=== PATIENT | male | born 1940 | race Caucasian/White ===

== ENCOUNTER → 2018-09-29 08:28 | Outpatient (CLI) | payer MEDICARE, SELFPAY ==
[2018-09-29 09:21] LABS: Add Manual Diff / Slide Review NO; Basophils Absolute Auto 100 /uL (0-100); Basophils Percent Auto 0.8 % (0-2); Eosinophils Absolute Auto 400 /uL (0-450); Hematocrit 40.8 % (41-53); Hemoglobin 14.4 g/dL (13.5-17.5); Lymphocytes Absolute Auto 1600 /uL (1100-4500); Lymphocytes Percent Auto 22.6 % (25-40); Mean Corpuscular HGB Conc 35.3 % (30-36); Mean Corpuscular Hemoglobin 32.8 PG (26-34); Monocytes Absolute Auto 600 /uL (0-900); Monocytes Percent Auto 8.9 % (3-14); Neutrophils Absolute Auto 4400 /uL (1500-7000); Neutrophils Percent Auto 62.7 % (50-75); Platelet Count 183 X10^3/uL (150-400); Red Blood Cell Count 4.39 X10^6/uL (4.5-5.9); Red Cell Distribution Width 13.6 % (11.6-14.8)
[2018-09-29 09:57] LABS: Alanine Aminotransferase 46 IU/L (21-72); Albumin 4.2 g/dL (3.5-5.0); Albumin Globulin Ratio 1.2 (1.0-2.8); Alkaline Phosphatase 58 U/L (38-126); Aspartate Aminotransferase 38 IU/L (17-59); Bilirubin Total 0.4 mg/dL (0.2-1.3); Blood Urea Nitrogen 17 mg/dL (9-20); Calcium 9.6 mg/dL (8.4-10.2); Carbon Dioxide 24 mmol/L (22-32); Chloride 106 mmol/L (98-107); Cholesterol 170 mg/dL (140-199); Estimated Glomerular Filt Rate > 60.0 mL/min (>60); Globulin 3.5 g/dL (1.7-4.1); Glucose 110 mg/dL (80-110); HDL Cholesterol 46 mg/dL (40-60); HEMOLYSIS < 15 (0-50); LDL Cholesterol Calculated 85 mg/dL (<100); Potassium 4.5 mmol/L (3.4-5.1); Sodium 138 mmol/L (137-145); Total Protein 7.7 g/dL (6.3-8.2); Triglycerides 195 mg/dL (35-150)
== END ==
PROVIDERS: PCP Physician Assistant; Visit Provider Physician Assistant
DX: E78.00 Pure hypercholesterolemia, unspecified (principal)
CPT/HCPCS: 36415; 80053; 80061; 85025

== ENCOUNTER → 2019-04-17 09:50 | Outpatient (CLI) | payer MEDICARE, SELFPAY ==
--- NOTE | 2019-04-17 | DI.RAD.S_ITS ---
PROCEDURE: XR HIP W PEL IF DONE RT 2V INDICATIONS: RIGHT HIP PAIN TECHNIQUE: AP pelvis with lateral view(s) of the right hip(s). COMPARISON: None. FINDINGS: Bones: No fractures or dislocations. Pelvic ring appears intact. No suspicious bony lesions. Lower lumbar spondylosis. Mild bilateral hip joint degeneration. Soft tissues: The visualized bowel gas pattern is normal. No suspicious soft tissue calcifications. IMPRESSION: Mild bilateral hip degeneration. Lower lumbar spondylosis. Dictated by: Emmanuel Orozco M.D. on 04/17/2019 at 12:55 Approved by: Emmanuel Orozco M.D. on 04/17/2019 at 12:57
== END ==
PROVIDERS: PCP Physician Assistant; Visit Provider Physician Assistant
DX: M25.551 Pain in right hip (principal); M16.0 Bilateral primary osteoarthritis of hip; M47.816 Spondylosis without myelopathy or radiculopathy, lumbar region
CPT/HCPCS: 73502

== ENCOUNTER → 2019-09-18 08:38 | Outpatient (CLI) | payer MEDICARE, SELFPAY ==
[2019-09-18 09:14] LABS: Add Manual Diff / Slide Review NO; Basophils Absolute Auto 100 /uL (0-100); Basophils Percent Auto 0.8 % (0-2); Eosinophils Absolute Auto 300 /uL (0-450); Hematocrit 42.4 % (41-53); Hemoglobin 14.6 g/dL (13.5-17.5); Lymphocytes Absolute Auto 1800 /uL (1100-4500); Lymphocytes Percent Auto 25.9 % (25-40); Mean Corpuscular HGB Conc 34.6 % (30-36); Mean Corpuscular Hemoglobin 32.5 PG (26-34); Mean Corpuscular Volume 94.2 fL (80-100); Monocytes Absolute Auto 700 /uL (0-900); Monocytes Percent Auto 9.4 % (3-14); Neutrophils Absolute Auto 4200 /uL (1500-7000); Neutrophils Percent Auto 59.9 % (50-75); Platelet Count 187 X10^3/uL (150-400); Red Cell Distribution Width 13.6 % (11.6-14.8)
[2019-09-18 09:24] LABS: Alanine Aminotransferase 35 IU/L (<50); Albumin 4.2 g/dL (3.5-5.0); Albumin Globulin Ratio 1.3 (1.0-2.8); Alkaline Phosphatase 61 U/L (38-126); Aspartate Aminotransferase 33 IU/L (17-59); BUN Creatinine Ratio 18.2 (6-22); Bilirubin Total 0.6 mg/dL (0.2-1.3); Blood Urea Nitrogen 20 mg/dL (9-20); Calcium 9.8 mg/dL (8.4-10.2); Carbon Dioxide 29 mmol/L (22-32); Chloride 102 mmol/L (98-107); Estimated Glomerular Filt Rate > 60.0 mL/min (>60); Globulin 3.2 g/dL (1.7-4.1); Glucose 116 mg/dL (80-110); HEMOLYSIS < 15 (0-50); Potassium 4.9 mmol/L (3.4-5.1); Sodium 139 mmol/L (137-145); Total Protein 7.4 g/dL (6.3-8.2)
== END ==
PROVIDERS: PCP Physician Assistant; Visit Provider Physician Assistant
DX: I10 Essential (primary) hypertension (principal); E78.00 Pure hypercholesterolemia, unspecified
CPT/HCPCS: 36415; 80053; 85025

== ENCOUNTER → 2019-11-09 13:56 | Outpatient (CLI) | payer MEDICARE, SELFPAY ==
--- NOTE | 2019-11-09 | DI.RAD.S_ITS ---
PROCEDURE: XR LUMBAR SPINE 2-3V INDICATIONS: Low back pain TECHNIQUE: 3 views of the lumbar spine were acquired. COMPARISON: None. FINDINGS: Bones: No fracture or focal osseous destruction. Multilevel degenerative endplate sclerosis and spurring. Diffuse facet arthropathy. Grade 1 anterolisthesis of L4 and L5 and grade 1 retrolisthesis of L2 on L3. Severe height loss of the L2-L3 and L5-S1 disc spaces. There is also severe L4-L5 disc height loss. Moderate L3-L4 disc height loss. Soft tissues: Scattered vascular calcifications seen in the aorta. Right upper quadrant cholelithiasis. IMPRESSION: Severe lumbar spondylosis and facet arthropathy. Multilevel spondylolisthesis as above. Dictated by: Emmanuel Orozco M.D. on 11/09/2019 at 16:40 Approved by: Emmanuel Orozco M.D. on 11/09/2019 at 16:42
== END ==
PROVIDERS: PCP Physician Assistant; Referring Provider Physician Assistant; Visit Provider Physician Assistant
DX: M54.5 Low back pain (principal); M47.816 Spondylosis without myelopathy or radiculopathy, lumbar region; M43.16 Spondylolisthesis, lumbar region; K80.20 Calculus of gallbladder without cholecystitis without obstruction
CPT/HCPCS: 72100

== ENCOUNTER → 2019-11-14 09:02 | Outpatient (CLI) | payer MEDICARE, SELFPAY ==
--- NOTE | 2019-11-14 | DI.MRI.S_ITS ---
PROCEDURE: MR LUMBAR SPINE WO CON INDICATIONS: Spondylolisthesis, lumbar region TECHNIQUE: Noncontrast sagittal T1 spin echo and T2 fast echo, sagittal STIR, axial T1 and T2 fast spin echo through the lumbar spine. In cases with scoliosis, additional coronal T2 fast spin echo may be performed. COMPARISON: [facility], CR, XR LUMBAR SPINE 2-3V, 11/09/2019, 14:14. FINDINGS: Image quality: Excellent. Alignment and Curvature: There is grade 1 retrolisthesis of L2 on L3, trace retrolisthesis of L5 on S1 and grade 1 anterolisthesis of L4 on L5. Bone Marrow: Marrow is of normal overall signal. Mild to moderate reactive endplate changes are present L2-3 and to a lesser extent L3-4, L4-5 and L5-S1. No acute vertebral body compression fractures. Spinal Cord: Conus medullaris terminates at the L2 level. Visualized cord demonstrates normal signal and size. Paraspinous Soft Tissues: No paravertebral masses. Discs: Severe desiccation is present at L2-3, L4-5, mild to moderate throughout the remainder of the lumbar spine. L1-L2: Mild disc bulge with minimal canal narrowing. Mild bilateral foraminal narrowing with facet and ligamentum flavum hypertrophy. L2-L3: Mild disc bulge with severe spinal stenosis. Moderate to severe left and moderate to severe narrowing within the subarticular recess on the right. Prominent facet and ligamentum flavum hypertrophy is present. L3-L4: Mild disc bulge with severe spinal stenosis. Mild left and moderate to severe right foraminal narrowing with facet and ligamentum flavum hypertrophy. L4-L5: Mild disc bulge with severe spinal stenosis. Severe bilateral foraminal narrowing with nerve root flattening on the right. Significant facet and ligamentum flavum hypertrophy are present. L5-S1: Mild disc bulge without spinal stenosis. Moderate left and severe right foraminal narrowing with prominent facet hypertrophy. IMPRESSION: 1. Multilevel degenerative changes. 2. Multilevel spinal stenosis severe from L2-3 through L4-5 secondary to disc bulge with contributing effect of facet/ligament arthropathy. 3. Multilevel foraminal narrowing severe at L4-5 and L5-S1 secondary to facet arthropathy. Dictated by: Karla Arellano M.D. on 11/14/2019 at 13:41 Approved by: Karla Arellano M.D. on 11/14/2019 at 15:07
== END ==
PROVIDERS: PCP Physician Assistant; Referring Provider Physician Assistant; Visit Provider Physician Assistant
DX: M43.16 Spondylolisthesis, lumbar region (principal); M47.816 Spondylosis without myelopathy or radiculopathy, lumbar region; M47.817 Spondylosis without myelopathy or radiculopathy, lumbosacral region; M48.061 Spinal stenosis, lumbar region without neurogenic claudication; M48.07 Spinal stenosis, lumbosacral region
CPT/HCPCS: 72148

== ENCOUNTER → 2020-05-06 14:43 | Outpatient (ROUT) | payer MEDICARE, SELFPAY ==
[2020-05-06 15:10] LABS: Add Manual Diff / Slide Review NO; Basophils Absolute Auto 100 /uL (0-100); Eosinophils Absolute Auto 200 /uL (0-450); Eosinophils Percent Auto 3.7 % (2-4); Hematocrit 41.5 % (41-53); Hemoglobin 14.1 g/dL (13.5-17.5); Lymphocytes Absolute Auto 1300 /uL (1100-4500); Lymphocytes Percent Auto 20.4 % (25-40); Mean Corpuscular HGB Conc 33.9 % (30-36); Mean Corpuscular Hemoglobin 32.3 PG (26-34); Mean Corpuscular Volume 95.1 fL (80-100); Monocytes Absolute Auto 600 /uL (0-900); Monocytes Percent Auto 9.9 % (3-14); Neutrophils Absolute Auto 4100 /uL (1500-7000); Platelet Count 180 X10^3/uL (150-400); Red Blood Cell Count 4.37 X10^6/uL (4.5-5.9); Red Cell Distribution Width 13.6 % (11.6-14.8); White Blood Cell Count 6.3 X10^3/uL (4.5-11.0)
[2020-05-06 15:22] LABS: Alanine Aminotransferase 35 IU/L (<50); Albumin 4.1 g/dL (3.5-5.0); Albumin Globulin Ratio 1.3 (1.0-2.8); Alkaline Phosphatase 64 U/L (38-126); Aspartate Aminotransferase 37 IU/L (17-59); BUN Creatinine Ratio 21.6 (6-22); Bilirubin Total 0.8 mg/dL (0.2-1.3); Blood Urea Nitrogen 22 mg/dL (9-20); Calcium 9.6 mg/dL (8.4-10.2); Carbon Dioxide 24 mmol/L (22-32); Chloride 105 mmol/L (98-107); Cholesterol 145 mg/dL (140-199); Estimated Glomerular Filt Rate > 60.0 mL/min (>60); Globulin 3.2 g/dL (1.7-4.1); Glucose 106 mg/dL (80-110); HDL Cholesterol 42 mg/dL (40-60); HEMOLYSIS 18 (0-50); LDL Cholesterol Calculated 55 mg/dL (<100); Potassium 4.8 mmol/L (3.4-5.1); Sodium 139 mmol/L (137-145); Total Protein 7.3 g/dL (6.3-8.2); Triglycerides 241 mg/dL (35-150)
[2020-05-06 15:29] LABS: Vitamin D 25 Hydroxy (D3) 33.3 ng/mL (30.0-100.0)
== END ==
PROVIDERS: PCP Physician Assistant; Visit Provider Physician Assistant
DX: I10 Essential (primary) hypertension (principal); E78.00 Pure hypercholesterolemia, unspecified; E55.9 Vitamin D deficiency, unspecified
CPT/HCPCS: 80053; 80061; 82306; 85025

== ENCOUNTER → 2024-10-01 16:46 | Outpatient (CLI) | payer OTHER, SELFPAY ==
--- NOTE | 2024-10-01 16:47 | DI.MRI.S_ITS ---
PROCEDURE: MR LUMBAR SPINE WO CON INDICATIONS: chronic pain, weakness lower extremities, lumbar stenosis TECHNIQUE: Noncontrast sagittal T1 spin echo and T2 fast echo, sagittal STIR, and T2 fast spin echo through the lumbar spine. In cases with scoliosis, additional coronal T2 fast spin echo may be performed. COMPARISON: [facility], MR, MR LUMBAR SPINE WO CON, 11/14/2019, 9:27. FINDINGS: Alignment and Curvature: Degenerative grade 1 listhesis L2-3 and L4-5 Bone Marrow: Edematous Modic type 1 degenerative endplate changes at L3-4 Spinal Cord: Conus medullaris terminates at the L1 level. Visualized cord demonstrates normal signal and size. Paraspinous Soft Tissues: No paravertebral masses. T12-L1: Normal appearance. L1-L2: Hypertrophic arthropathy. Mild central stenosis. No foraminal stenosis. L2-L3: Disc bulge and arthropathy. Severe central stenosis. Moderate bilateral foraminal stenosis L3-L4: Disc bulge, arthropathy and ligamentum flavum laxity. Severe central stenosis. Moderate bilateral foraminal stenosis. L4-L5: Disc bulge and hypertrophic arthropathy. Severe central stenosis. Severe bilateral foraminal stenosis. L5-S1: Disc bulge and arthropathy. Mild central and moderate bilateral foraminal stenosis. IMPRESSION: Multilevel degenerative disc disease and arthropathy results in varying degrees of central and foraminal stenosis including severe central stenosis L2-3, L3-4 and L4-5, slightly increased from the prior. Approved by: Jairo Wei M.D. on 10/02/2024 at 10:15
== END ==
PROVIDERS: PCP Family Medicine; Referring Provider Family Medicine; Visit Provider Family Medicine
DX: M48.061 Spinal stenosis, lumbar region without neurogenic claudication (principal); M47.816 Spondylosis without myelopathy or radiculopathy, lumbar region; M47.817 Spondylosis without myelopathy or radiculopathy, lumbosacral region; M48.07 Spinal stenosis, lumbosacral region; M51.379 Other intervertebral disc degeneration, lumbosacral region without mention of lumbar back pain or lower extremity pain; M51.369 Other intervertebral disc degeneration, lumbar region without mention of lumbar back pain or lower extremity pain; R29.898 Other symptoms and signs involving the musculoskeletal system; R26.2 Difficulty in walking, not elsewhere classified; G89.29 Other chronic pain
CPT/HCPCS: 72148

== ENCOUNTER 2024-10-03 13:45 | Outpatient (RCR) | payer MEDICARE, OTHER, SELFPAY ==
--- NOTE | 2024-06-13 12:15 | PT.OPPOC ---
Physical, Occupational & Speech Therapy At [facility] Current Diagnoses Pain in right hip (06/13/24) Spondylosis without myelopathy or radiculopathy, lumbar region (06/13/24) Spinal stenosis, lumbar region without neurogenic claudication (06/13/24) Visit Care Team Role Provider Type Referring Provider Specialty: Address: Phone: Fax: Email: Dayana Ramos PA-C Primary Care Provider Non-Staff Specialty: Medical Address: [address] [place] [address], [id number] Email: [email or web address] Mahnaz Silvestre MD Attending Provider Non-Staff Specialty: Physical Medicine and Rehab Address: [address] [place] [address], [id number] Email: Plan Of Care PT-OP-B Current Condition Start: 06/13/24 17:47 Freq: Status: Active Protocol: Document 06/13/24 11:35 DCW (Rec: 06/14/24 10:55 DCW [id number]) Current Condition History of Current Condition Onset Date Four year history Current Complaints Hip pain, sudden buckling of right leg, Stenosis History of Current Condition Pt is an 83 year old male presenting with a multi-year history of back and right hip pain. Pt notes he believes 2020 was the first time he went to see a doctor about it, reports it was recommended that he have a fusion at that time, but he didn't go through with it. In the mean time, his has been having an increase in right posterior hip pain. Was taking pain pills for a while, but stopped so he could get a better idea of what was flaring it up or calming it down. Increased pain when walking too much, rolling over, and when first getting up in the morning. Was recently seen by a new physician, pt reports that she actually listened to me, and I got actual information about everything! Was diagnosed with severe stenosis , facet arthropathy, and neuropathy. Pt notes he was recently working with a intelligence research specialist, they're trying to straighten my spine out, but I decided to stop with them until I did my PT, because if then straighten out my spine, great, I'll have a straight spine, but it won't help this hip pain. Currently uses a 4WW due to complaints of sudden, unexpected right leg buckling. Treatment Goals Patient/Caregiver Goals Pt's main goal is to decrease right posterior hip pain, and to eliminate occurrences of right leg buckling PT-OP-T Assessment and Plan Start: 06/13/24 17:47 Freq: Status: Active Protocol: Document 06/13/24 11:35 DCW (Rec: 06/14/24 10:55 DCW [id number]) Physical Therapy Assessment Evaluation Complexity Number of Personal Factors/Comorbidities 3 or More Number of Body Systems Impaired 4 or More Clinical Presentation at Evaluation Evolving Impairments Impairments Activity Tolerance,Functional Activities,Functional Mobility ,Pain,Soft Tissue Mobility, Strength,Tone Goals Three Impairment Pt displays general LE weakness and quickly fatigues with testing Skilled Nursing Goal (LTG) Pt to increase bilateral LE strength to 4/5 or better in all tested planes in order to improve stability during gait and decrease instances of right leg buckling LTG Duration 08/13/24 Two Impairment Pt experiences increased right hip pain walking longer than 10 minutes Territory Manager General Sales Goal (LTG) Pt to report ability to tolerate ambulating 20 minutes or longer with use of a 4WW without increased right hip pain LTG Duration 08/13/24 One Impairment Pt does not have an appropriate home exercise program Short Term Goal (STG) Pt to be independent and compliant with an appropriate HEP STG Duration 07/14/24 Assessment Summary Assessment Pt presents with signs and symptoms consistent with referring diagnosis of severe lumbar stenosis. Pt exhibits bilateral lower extremity weakness, sudden right leg buckling, right posterior hip pain, and fairly severe tone throughout lumbar and hip musculature. Pt should benefit from skilled therapeutic intervention focusing on hip and core strengthening, tone management with flexibility/ stretching in hamstrings, glutes, hip flexors, and piriformis, in addition to working on pelvic tilts and abdominal bracing for support. Physical Therapy Plan Frequency and Duration Frequency of Treatment 2x/Week Plan of Care Start Date 06/13/24 Plan of Care End Date 08/13/24 Therapeutic Interventions Therapeutic Interventions Balance Training,Gait Training ,Home Exercise Program,Joint Mobilizations,Manual Therapy, Neuromuscular Re-education, Patient/Caregiver Education, Self-Care/Home Management,Soft Tissue Mobilization,Taping, Therapeutic Activities, Therapeutic Exercises Modalities Cold Pack/Ice Massage,Electric Stimulation,Hot Packs Next Visit Focus/Plan Next Note Type Treatment Note Next Visit Plan bilateral hip flexibility, core strengthening, gait, functional mobility Plan of Care Dates Plan of Care Start Date 06/13/24 Plan of Care End Date 08/13/24 Electronically Signed by: Billy Selby, PT 06/14/24 2919 If you are in agreement with this Plan of Care, please return a signed and dated copy. I have reviewed this Plan of Care and certify that the skilled therapy services above are required to meet the patient?s needs. Physician Signature Date Printed Name and Credentials Clinical Instructor Signature Printed Name and Credentials
--- NOTE | 2024-06-13 12:15 | PT.OIE ---
Current Diagnoses Pain in right hip (06/13/24) Spondylosis without myelopathy or radiculopathy, lumbar region (06/13/24) Spinal stenosis, lumbar region without neurogenic claudication (06/13/24) Past Medical History (Last Updated 01/03/23 @ 13:23 by Yvrose Fernández MD) Depression Hypertension Obesity Past Surgical History (Last Updated 01/03/23 @ 13:24 by Yvrose Fernández MD) History of back surgery Visit Care Team Role Provider Type Referring Provider Specialty: Address: Phone: Fax: Email: Dayana Ramos PA-C Primary Care Provider Non-Staff Specialty: Medical Address: [address] [place] [address], [facility] Email: [email or web address] Silvestre MD Attending Provider Non-Staff Specialty: Physical Medicine and Rehab Address: [address] [place] [address], [facility] Email: Physical Therapy Initial Evaluation PT-OP-A Visit Information Start: 06/13/24 17:47 Freq: Status: Active Protocol: Document 06/13/24 11:35 DCW (Rec: 06/13/24 17:52 DCW [id number]) Out-Patient Physical Therapy Visit Information Visit Information Visit Type Initial Evaluation Visit Note Late arrival Visit Start Time 11:35 Visit Stop Time 12:15 Visit Number 1 Number of CHRISTIAN SCIENCE HEALER Visits 0 Evaluation Information Evaluation Date 06/13/24 PT-OP-B Current Condition Start: 06/13/24 17:47 Freq: Status: Active Protocol: Document 06/13/24 11:35 DCW (Rec: 06/14/24 10:55 DC [id number]) Current Condition History of Current Condition Onset Date Four year history Current Complaints Hip pain, sudden buckling of right leg, Stenosis History of Current Condition Pt is an 83 year old male presenting with a multi-year history of back and right hip pain. Pt notes he believes 2020 was the first time he went to see a doctor about it, reports it was recommended that he have a fusion at that time, but he didn't go through with it. In the mean time, his has been having an increase in right posterior hip pain. Was taking pain pills for a while, but stopped so he could get a better idea of what was flaring it up or calming it down. Increased pain when walking too much, rolling over, and when first getting up in the morning. Was recently seen by a new physician, pt reports that she actually listened to me, and I got actual information about everything! Was diagnosed with severe stenosis , facet arthropathy, and neuropathy. Pt notes he was recently working with a investor relations specialist, they're trying to straighten my spine out, but I decided to stop with them until I did my PT, because if then straighten out my spine, great, I'll have a straight spine, but it won't help this hip pain. Currently uses a 4WW due to complaints of sudden, unexpected right leg buckling. Treatment Goals Patient/Caregiver Goals Pt's main goal is to decrease right posterior hip pain, and to eliminate occurrences of right leg buckling PT-OP-C Subjective Start: 06/13/24 17:47 Freq: Status: Active Protocol: Document 06/13/24 11:35 DCW (Rec: 06/13/24 17:52 DCW [id number]) OP-PT Subjective Patient Comments Patient Comments I need to use this walker, because my right leg will just suddenly give out on me. I never know when it will happen . Patient Questionnaires Oswestry Low Back Index Oswestry Score 16/50 = 32% PT-OP-F Manual Assessment Start: 06/13/24 17:47 Freq: Status: Active Protocol: Document 06/13/24 11:35 DCW (Rec: 06/14/24 10:55 DCW [id number]) Manual Assessments Soft Tissue Assessment Soft Tissue Mobility Assessment Severe tone/hypomobility of bilateral hamstrings, hip flexors, ITB, piriformis, glutes Joint Mobility Assessment Joint Mobility Assessment Moderate-severe lumbar hypomobility PT-OP-L Special Tests Start: 06/13/24 17:47 Freq: Status: Active Protocol: Document 06/13/24 11:35 DCW (Rec: 06/14/24 10:55 DCW [id number]) Special Tests Lumbar Spine Special Tests Straight Leg Raise Test Results Hamstring tightness L 50?, R 40? Slump Test Results Hamstring tightness Compression Test Results Negative A-P Shearing Test Results Negative Hip Special Tests Souleymane Test Results Bilateral hip flexor stretch Piriformis Test Results Bilateral stiffness LEO Test Results Ipsilateral hip pain bilaterally PT-OP-M Strength Start: 06/13/24 17:47 Freq: Status: Active Protocol: Document 06/13/24 11:35 DCW (Rec: 06/14/24 10:55 DCW [id number]) Hip Strength Hip Manual Muscle Testing Right Flexion (L2) 4- Good- Abduction 4- Good- Adduction 4- Good- External Rotation 4- Good- Internal Rotation 4- Good- Comments It takes a lot of effort Left Flexion (L2) 4- Good- Abduction 4- Good- Adduction 4- Good- External Rotation 4- Good- Internal Rotation 4- Good- Comments It takes a lot of effort PT-OP-Q Treatments Start: 06/13/24 17:47 Freq: Status: Active Protocol: Document 06/13/24 11:35 DCW (Rec: 06/13/24 17:52 DCW [id number]) Therapeutic Exercises Supine Exercises Hamstring Stretch Supine Exercise Name Hamstring stretch with strap Side bilateral Supine Marching Supine Exercise Name Marching /c TrA bracing Sitting Exercises Piriformis Sitting Exercise Name Seated figure-4 PT-OP-T Assessment and Plan Start: 06/13/24 17:47 Freq: Status: Active Protocol: Document 06/13/24 11:35 DCW (Rec: 06/14/24 10:55 DCW [id number]) Physical Therapy Assessment Evaluation Complexity Number of Personal Factors/Comorbidities 3 or More Number of Body Systems Impaired 4 or More Clinical Presentation at Evaluation Evolving Impairments Impairments Activity Tolerance,Functional Activities,Functional Mobility ,Pain,Soft Tissue Mobility, Strength,Tone Goals Three Impairment Pt displays general LE weakness and quickly fatigues with testing 8Th Grade Teacher Goal (LTG) Pt to increase bilateral LE strength to 4/5 or better in all tested planes in order to improve stability during gait and decrease instances of right leg buckling LTG Duration 08/13/24 Two Impairment Pt experiences increased right hip pain walking longer than 10 minutes 8Th Grade Teacher Goal (LTG) Pt to report ability to tolerate ambulating 20 minutes or longer with use of a 4WW without increased right hip pain LTG Duration 08/13/24 One Impairment Pt does not have an appropriate home exercise program Short Term Goal (STG) Pt to be independent and compliant with an appropriate HEP STG Duration 07/14/24 Assessment Summary Assessment Pt presents with signs and symptoms consistent with referring diagnosis of severe lumbar stenosis. Pt exhibits bilateral lower extremity weakness, sudden right leg buckling, right posterior hip pain, and fairly severe tone throughout lumbar and hip musculature. Pt should benefit from skilled therapeutic intervention focusing on hip and core strengthening, tone management with flexibility/ stretching in hamstrings, glutes, hip flexors, and piriformis, in addition to working on pelvic tilts and abdominal bracing for support. Physical Therapy Plan Frequency and Duration Frequency of Treatment 2x/Week Plan of Care Start Date 06/13/24 Plan of Care End Date 08/13/24 Therapeutic Interventions Therapeutic Interventions Balance Training,Gait Training ,Home Exercise Program,Joint Mobilizations,Manual Therapy, Neuromuscular Re-education, Patient/Caregiver Education, Self-Care/Home Management,Soft Tissue Mobilization,Taping, Therapeutic Activities, Therapeutic Exercises Modalities Cold Pack/Ice Massage,Electric Stimulation,Hot Packs Next Visit Focus/Plan Next Note Type Treatment Note Next Visit Plan bilateral hip flexibility, core strengthening, gait, functional mobility
--- NOTE | 2024-06-15 09:43 | PT.OTN ---
Current Diagnoses Pain in right hip (06/15/24) Spondylosis without myelopathy or radiculopathy, lumbar region (06/15/24) Spinal stenosis, lumbar region without neurogenic claudication (06/15/24) Physical Therapy Treatment Note PT-OP-A Visit Information Start: 06/13/24 17:47 Freq: Status: Active Protocol: Document 06/15/24 09:00 DCW (Rec: 06/15/24 09:43 DCW [id number]) Out-Patient Physical Therapy Visit Information Visit Information Visit Type Treatment Note Visit Start Time 09:00 Visit Stop Time 09:45 Visit Number 2 Number of BELLMAN DRIVER Visits 0 Evaluation Information Evaluation Date 06/13/24 PT-OP-B Current Condition Start: 06/13/24 17:47 Freq: Status: Active Protocol: Document 06/13/24 11:35 DCW (Rec: 06/14/24 10:55 DCW [id number]) Current Condition History of Current Condition Onset Date Four year history Current Complaints Hip pain, sudden buckling of right leg, Stenosis History of Current Condition Pt is an 83 year old male presenting with a multi-year history of back and right hip pain. Pt notes he believes 2020 was the first time he went to see a doctor about it, reports it was recommended that he have a fusion at that time, but he didn't go through with it. In the mean time, his has been having an increase in right posterior hip pain. Was taking pain pills for a while, but stopped so he could get a better idea of what was flaring it up or calming it down. Increased pain when walking too much, rolling over, and when first getting up in the morning. Was recently seen by a new physician, pt reports that she actually listened to me, and I got actual information about everything! Was diagnosed with severe stenosis , facet arthropathy, and neuropathy. Pt notes he was recently working with a senior training specialist, they're trying to straighten my spine out, but I decided to stop with them until I did my PT, because if then straighten out my spine, great, I'll have a straight spine, but it won't help this hip pain. Currently uses a 4WW due to complaints of sudden, unexpected right leg buckling. Treatment Goals Patient/Caregiver Goals Pt's main goal is to decrease right posterior hip pain, and to eliminate occurrences of right leg buckling PT-OP-C Subjective Start: 06/13/24 17:47 Freq: Status: Active Protocol: Document 06/15/24 09:00 DCW (Rec: 06/15/24 09:43 DCW [id number]) OP-PT Subjective Patient Comments Patient Comments Pt his legs were pretty sore about an hour after leaving his eval, but has kept up with his stretching, and has been feeling pretty good ever since . PT-OP-F Manual Assessment Start: 06/13/24 17:47 Freq: Status: Active Protocol: Document 06/13/24 11:35 DCW (Rec: 06/14/24 10:55 DCW [id number]) Manual Assessments Soft Tissue Assessment Soft Tissue Mobility Assessment Severe tone/hypomobility of bilateral hamstrings, hip flexors, ITB, piriformis, glutes Joint Mobility Assessment Joint Mobility Assessment Moderate-severe lumbar hypomobility PT-OP-L Special Tests Start: 06/13/24 17:47 Freq: Status: Active Protocol: Document 06/13/24 11:35 DCW (Rec: 06/14/24 10:55 DCW [id number]) Special Tests Lumbar Spine Special Tests Straight Leg Raise Test Results Hamstring tightness L 50?, R 40? Slump Test Results Hamstring tightness Compression Test Results Negative A-P Shearing Test Results Negative Hip Special Tests Souleymane Test Results Bilateral hip flexor stretch Piriformis Test Results Bilateral stiffness LEO Test Results Ipsilateral hip pain bilaterally PT-OP-M Strength Start: 06/13/24 17:47 Freq: Status: Active Protocol: Document 06/13/24 11:35 DCW (Rec: 06/14/24 10:55 DCW [id number]) Hip Strength Hip Manual Muscle Testing Right Flexion (L2) 4- Good- Abduction 4- Good- Adduction 4- Good- External Rotation 4- Good- Internal Rotation 4- Good- Comments It takes a lot of effort Left Flexion (L2) 4- Good- Abduction 4- Good- Adduction 4- Good- External Rotation 4- Good- Internal Rotation 4- Good- Comments It takes a lot of effort PT-OP-Q Treatments Start: 06/13/24 17:47 Freq: Status: Active Protocol: Document 06/15/24 09:00 DCW (Rec: 06/15/24 09:43 DCW [id number]) Gym Equipment Therapeutic Ball Hip Flexion Exercise Details Resisted hip/knee flexion /c feet on ball Ball Size/Color Red - 55 cm Lv 2 T-band Body Position Supine LTR Exercise Details LTR Ball Size/Color Red - 55 cm Body Position Supine Therapeutic Exercises Supine Exercises Bridging Supine Exercise Name Bridging /c TrA bracing Piriformis Supine Exercise Name Knee to opposite shoulder - Piriformis stretch Side bilateral ITB Stretch Supine Exercise Name ITB Stretch Side bilateral Comments Hooklying Hamstring Stretch Supine Exercise Name Hamstring stretch Side bilateral Standing Exercises Pallof Press Standing Exercise Name Pallof Press Side bilateral Resistance Green PT-OP-T Assessment and Plan Start: 06/13/24 17:47 Freq: Status: Active Protocol: Document 06/15/24 09:00 DC (Rec: 06/15/24 09:43 [facility] [id number]) Physical Therapy Assessment Impairments Impairments Activity Tolerance,Functional Activities,Functional Mobility ,Pain,Soft Tissue Mobility, Strength,Tone Goals Three Impairment Pt displays general LE weakness and quickly fatigues with testing Oil Field Worker Goal (LTG) Pt to increase bilateral LE strength to 4/5 or better in all tested planes in order to improve stability during gait and decrease instances of right leg buckling LTG Duration 08/13/24 Two Impairment Pt experiences increased right hip pain walking longer than 10 minutes Oil Field Worker Goal (LTG) Pt to report ability to tolerate ambulating 20 minutes or longer with use of a 4WW without increased right hip pain LTG Duration 08/13/24 One Impairment Pt does not have an appropriate home exercise program Short Term Goal (STG) Pt to be independent and compliant with an appropriate HEP STG Duration 07/14/24 Assessment Summary Assessment Very good response to stretching today, pt noted legs much more relaxed afterward. UIt takes a lot of efforton starting exercise, pt surprised how quickly he fatigued. Provided handout for bridging and Pallof Press for HEP. Physical Therapy Plan Frequency and Duration Frequency of Treatment 2x/Week Plan of Care Start Date 06/13/24 Plan of Care End Date 08/13/24 Therapeutic Interventions Therapeutic Interventions Balance Training,Gait Training ,Home Exercise Program,Joint Mobilizations,Manual Therapy, Neuromuscular Re-education, Patient/Caregiver Education, Self-Care/Home Management,Soft Tissue Mobilization,Taping, Therapeutic Activities, Therapeutic Exercises Modalities Cold Pack/Ice Massage,Electric Stimulation,Hot Packs Next Visit Focus/Plan Next Note Type Treatment Note Next Visit Plan bilateral hip flexibility, core strengthening, gait, functional mobility
--- NOTE | 2024-06-18 15:15 | PT.OTN ---
Current Diagnoses Pain in right hip (06/18/24) Spondylosis without myelopathy or radiculopathy, lumbar region (06/18/24) Spinal stenosis, lumbar region without neurogenic claudication (06/18/24) Physical Therapy Treatment Note PT-OP-A Visit Information Start: 06/13/24 17:47 Freq: Status: Active Protocol: Document 06/18/24 14:34 DCW (Rec: 06/18/24 15:14 DCW [id number]) Out-Patient Physical Therapy Visit Information Visit Information Visit Type Treatment Note Visit Start Time 14:34 Visit Stop Time 15:15 Visit Number 3 Number of CREDIT VERIFIER Visits 0 Evaluation Information Evaluation Date 06/13/24 PT-OP-B Current Condition Start: 06/13/24 17:47 Freq: Status: Active Protocol: Document 06/13/24 11:35 DCW (Rec: 06/14/24 10:55 DCW [id number]) Current Condition History of Current Condition Onset Date Four year history Current Complaints Hip pain, sudden buckling of right leg, Stenosis History of Current Condition Pt is an 83 year old male presenting with a multi-year history of back and right hip pain. Pt notes he believes 2020 was the first time he went to see a doctor about it, reports it was recommended that he have a fusion at that time, but he didn't go through with it. In the mean time, his has been having an increase in right posterior hip pain. Was taking pain pills for a while, but stopped so he could get a better idea of what was flaring it up or calming it down. Increased pain when walking too much, rolling over, and when first getting up in the morning. Was recently seen by a new physician, pt reports that she actually listened to me, and I got actual information about everything! Was diagnosed with severe stenosis , facet arthropathy, and neuropathy. Pt notes he was recently working with a forest fire specialist supervisor, they're trying to straighten my spine out, but I decided to stop with them until I did my PT, because if then straighten out my spine, great, I'll have a straight spine, but it won't help this hip pain. Currently uses a 4WW due to complaints of sudden, unexpected right leg buckling. Treatment Goals Patient/Caregiver Goals Pt's main goal is to decrease right posterior hip pain, and to eliminate occurrences of right leg buckling PT-OP-C Subjective Start: 06/13/24 17:47 Freq: Status: Active Protocol: Document 06/18/24 14:34 DCW (Rec: 06/18/24 15:14 DCW [id number]) OP-PT Subjective Patient Comments Patient Comments I'm sore. I'm thinking its because of the weather. PT-OP-F Manual Assessment Start: 06/13/24 17:47 Freq: Status: Active Protocol: Document 06/13/24 11:35 DCW (Rec: 06/14/24 10:55 DCW [id number]) Manual Assessments Soft Tissue Assessment Soft Tissue Mobility Assessment Severe tone/hypomobility of bilateral hamstrings, hip flexors, ITB, piriformis, glutes Joint Mobility Assessment Joint Mobility Assessment Moderate-severe lumbar hypomobility PT-OP-L Special Tests Start: 06/13/24 17:47 Freq: Status: Active Protocol: Document 06/13/24 11:35 DCW (Rec: 06/14/24 10:55 DCW [id number]) Special Tests Lumbar Spine Special Tests Straight Leg Raise Test Results Hamstring tightness L 50?, R 40? Slump Test Results Hamstring tightness Compression Test Results Negative A-P Shearing Test Results Negative Hip Special Tests Souleymane Test Results Bilateral hip flexor stretch Piriformis Test Results Bilateral stiffness LEO Test Results Ipsilateral hip pain bilaterally PT-OP-M Strength Start: 06/13/24 17:47 Freq: Status: Active Protocol: Document 06/13/24 11:35 DCW (Rec: 06/14/24 10:55 DCW [id number]) Hip Strength Hip Manual Muscle Testing Right Flexion (L2) 4- Good- Abduction 4- Good- Adduction 4- Good- External Rotation 4- Good- Internal Rotation 4- Good- Comments It takes a lot of effort Left Flexion (L2) 4- Good- Abduction 4- Good- Adduction 4- Good- External Rotation 4- Good- Internal Rotation 4- Good- Comments It takes a lot of effort PT-OP-Q Treatments Start: 06/13/24 17:47 Freq: Status: Active Protocol: Document 06/18/24 14:34 DCW (Rec: 06/18/24 15:14 DCW [id number]) Gym Equipment Therapeutic Ball Hip Flexion Exercise Details Resisted hip/knee flexion /c feet on ball Ball Size/Color Red - 55 cm Lv 2 T-band Body Position Supine LTR Exercise Details LTR Ball Size/Color Red - 55 cm Body Position Supine Therapeutic Exercises Supine Exercises Piriformis Supine Exercise Name Knee to opposite shoulder - Piriformis stretch Side bilateral ITB Stretch Supine Exercise Name ITB Stretch Side bilateral Comments Hooklying Hamstring Stretch Supine Exercise Name Hamstring stretch Side bilateral Sidelying Exercises Hip Abduction Sidelying Exercise Name Hip Abduction Side bilateral Reps/Minutes x6 Reverse Clamshell Sidelying Exercise Name Reverse Clamshell Side bilateral Reps/Minutes x10 Clamshell Sidelying Exercise Name Clamshell Side bilateral Reps/Minutes x10 Manual Therapy Treatment Consent Patient gave verbal consent for manual Yes treatment Soft Tissue Mobilization Lumbar Body Location Paraspinals, Glutes, Piriformis Mobilization Type Sustained Pressure,Trigger Point Release Body Position Sidelying PT-OP-T Assessment and Plan Start: 06/13/24 17:47 Freq: Status: Active Protocol: Document 06/18/24 14:34 DCW (Rec: 06/18/24 15:14 DCW [id number]) Physical Therapy Assessment Impairments Impairments Activity Tolerance,Functional Activities,Functional Mobility ,Pain,Soft Tissue Mobility, Strength,Tone Goals Three Impairment Pt displays general LE weakness and quickly fatigues with testing Nursing Home Goal (LTG) Pt to increase bilateral LE strength to 4/5 or better in all tested planes in order to improve stability during gait and decrease instances of right leg buckling LTG Duration 08/13/24 Two Impairment Pt experiences increased right hip pain walking longer than 10 minutes Copy Chaser Goal (LTG) Pt to report ability to tolerate ambulating 20 minutes or longer with use of a 4WW without increased right hip pain LTG Duration 08/13/24 One Impairment Pt does not have an appropriate home exercise program Short Term Goal (STG) Pt to be independent and compliant with an appropriate HEP STG Duration 07/14/24 Assessment Summary Assessment Pt continues to tolerate well, did well with new sidelying exercises, provided handout for HEP. Continue to work on decreasing tone and improving functional mobility. Physical Therapy Plan Frequency and Duration Frequency of Treatment 2x/Week Plan of Care Start Date 06/13/24 Plan of Care End Date 08/13/24 Therapeutic Interventions Therapeutic Interventions Balance Training,Gait Training ,Home Exercise Program,Joint Mobilizations,Manual Therapy, Neuromuscular Re-education, Patient/Caregiver Education, Self-Care/Home Management,Soft Tissue Mobilization,Taping, Therapeutic Activities, Therapeutic Exercises Modalities Cold Pack/Ice Massage,Electric Stimulation,Hot Packs Next Visit Focus/Plan Next Note Type Treatment Note Next Visit Plan bilateral hip flexibility, core strengthening, gait, functional mobility
--- NOTE | 2024-06-22 15:14 | PT.OTN ---
Current Diagnoses Pain in right hip (06/22/24) Spondylosis without myelopathy or radiculopathy, lumbar region (06/22/24) Spinal stenosis, lumbar region without neurogenic claudication (06/22/24) Physical Therapy Treatment Note PT-OP-A Visit Information Start: 06/13/24 17:47 Freq: Status: Active Protocol: Document 06/22/24 14:30 DCW (Rec: 06/22/24 15:14 DCW [id number]) Out-Patient Physical Therapy Visit Information Visit Information Visit Type Treatment Note Visit Start Time 14:30 Visit Stop Time 15:15 Visit Number 4 Number of HEALTH SERVICE COORDINATOR Visits 0 Evaluation Information Evaluation Date 06/13/24 PT-OP-B Current Condition Start: 06/13/24 17:47 Freq: Status: Active Protocol: Document 06/13/24 11:35 DCW (Rec: 06/14/24 10:55 DCW [id number]) Current Condition History of Current Condition Onset Date Four year history Current Complaints Hip pain, sudden buckling of right leg, Stenosis History of Current Condition Pt is an 83 year old male presenting with a multi-year history of back and right hip pain. Pt notes he believes 2020 was the first time he went to see a doctor about it, reports it was recommended that he have a fusion at that time, but he didn't go through with it. In the mean time, his has been having an increase in right posterior hip pain. Was taking pain pills for a while, but stopped so he could get a better idea of what was flaring it up or calming it down. Increased pain when walking too much, rolling over, and when first getting up in the morning. Was recently seen by a new physician, pt reports that she actually listened to me, and I got actual information about everything! Was diagnosed with severe stenosis , facet arthropathy, and neuropathy. Pt notes he was recently working with a dermatology specialist, they're trying to straighten my spine out, but I decided to stop with them until I did my PT, because if then straighten out my spine, great, I'll have a straight spine, but it won't help this hip pain. Currently uses a 4WW due to complaints of sudden, unexpected right leg buckling. Treatment Goals Patient/Caregiver Goals Pt's main goal is to decrease right posterior hip pain, and to eliminate occurrences of right leg buckling PT-OP-C Subjective Start: 06/13/24 17:47 Freq: Status: Active Protocol: Document 06/22/24 14:30 DCW (Rec: 06/22/24 15:14 DCW [id number]) OP-PT Subjective Patient Comments Patient Comments Pt continues to be compliant with his HEP, feels like he is able to tolerate increasing his reps. PT-OP-F Manual Assessment Start: 06/13/24 17:47 Freq: Status: Active Protocol: Document 06/13/24 11:35 DCW (Rec: 06/14/24 10:55 DCW [id number]) Manual Assessments Soft Tissue Assessment Soft Tissue Mobility Assessment Severe tone/hypomobility of bilateral hamstrings, hip flexors, ITB, piriformis, glutes Joint Mobility Assessment Joint Mobility Assessment Moderate-severe lumbar hypomobility PT-OP-L Special Tests Start: 06/13/24 17:47 Freq: Status: Active Protocol: Document 06/13/24 11:35 DCW (Rec: 06/14/24 10:55 DCW [id number]) Special Tests Lumbar Spine Special Tests Straight Leg Raise Test Results Hamstring tightness L 50?, R 40? Slump Test Results Hamstring tightness Compression Test Results Negative A-P Shearing Test Results Negative Hip Special Tests Souleymane Test Results Bilateral hip flexor stretch Piriformis Test Results Bilateral stiffness LEO Test Results Ipsilateral hip pain bilaterally PT-OP-M Strength Start: 06/13/24 17:47 Freq: Status: Active Protocol: Document 06/13/24 11:35 DCW (Rec: 06/14/24 10:55 DCW [id number]) Hip Strength Hip Manual Muscle Testing Right Flexion (L2) 4- Good- Abduction 4- Good- Adduction 4- Good- External Rotation 4- Good- Internal Rotation 4- Good- Comments It takes a lot of effort Left Flexion (L2) 4- Good- Abduction 4- Good- Adduction 4- Good- External Rotation 4- Good- Internal Rotation 4- Good- Comments It takes a lot of effort PT-OP-Q Treatments Start: 06/13/24 17:47 Freq: Status: Active Protocol: Document 06/22/24 14:30 DCW (Rec: 06/22/24 15:14 DCW [id number]) Gym Equipment Therapeutic Ball Hip Flexion Exercise Details Resisted hip/knee flexion /c feet on ball Ball Size/Color Red - 55 cm Lv 2 T-band Body Position Supine LTR Exercise Details LTR Ball Size/Color Red - 55 cm Body Position Supine Therapeutic Exercises Supine Exercises SLR Supine Exercise Name PPT /c SLR Side bilateral Supine Air Bicycle Supine Exercise Name PPT /c Air Bike Side bilateral Standing Exercises Hip Extension Standing Exercise Name Hip Extension Side bilateral Resistance Green loop Other Exercises Resisted Ambulation Other Exercise Name Resisted side-stepping Resistance Green loop PT-OP-T Assessment and Plan Start: 06/13/24 17:47 Freq: Status: Active Protocol: Document 06/22/24 14:30 DCW (Rec: 06/22/24 15:14 DCW [id number]) Physical Therapy Assessment Impairments Impairments Activity Tolerance,Functional Activities,Functional Mobility ,Pain,Soft Tissue Mobility, Strength,Tone Goals Three Impairment Pt displays general LE weakness and quickly fatigues with testing Lens Generating Machine Tender Goal (LTG) Pt to increase bilateral LE strength to 4/5 or better in all tested planes in order to improve stability during gait and decrease instances of right leg buckling LTG Duration 08/13/24 Two Impairment Pt experiences increased right hip pain walking longer than 10 minutes Lens Generating Machine Tender Goal (LTG) Pt to report ability to tolerate ambulating 20 minutes or longer with use of a 4WW without increased right hip pain LTG Duration 08/13/24 One Impairment Pt does not have an appropriate home exercise program Short Term Goal (STG) Pt to be independent and compliant with an appropriate HEP STG Duration 07/14/24 Assessment Summary Assessment Pt working hard, continues to do well with added exercises, working hard in therapy. Focus on activity tolerance, tone management, strengthening, and functional mobility. Physical Therapy Plan Frequency and Duration Frequency of Treatment 2x/Week Plan of Care Start Date 06/13/24 Plan of Care End Date 08/13/24 Therapeutic Interventions Therapeutic Interventions Balance Training,Gait Training ,Home Exercise Program,Joint Mobilizations,Manual Therapy, Neuromuscular Re-education, Patient/Caregiver Education, Self-Care/Home Management,Soft Tissue Mobilization,Taping, Therapeutic Activities, Therapeutic Exercises Modalities Cold Pack/Ice Massage,Electric Stimulation,Hot Packs Next Visit Focus/Plan Next Note Type Treatment Note Next Visit Plan bilateral hip flexibility, core strengthening, gait, functional mobility
--- NOTE | 2024-06-25 15:19 | PT.OTN ---
Current Diagnoses Pain in right hip (06/25/24) Spondylosis without myelopathy or radiculopathy, lumbar region (06/25/24) Spinal stenosis, lumbar region without neurogenic claudication (06/25/24) Physical Therapy Treatment Note PT-OP-A Visit Information Start: 06/13/24 17:47 Freq: Status: Active Protocol: Document 06/25/24 14:33 DCW (Rec: 06/25/24 15:19 DCW [id number]) Out-Patient Physical Therapy Visit Information Visit Information Visit Type Treatment Note Visit Start Time 14:33 Visit Stop Time 15:15 Visit Number 5 Number of RECEPTIONIST SECRETARY Visits 0 Evaluation Information Evaluation Date 06/13/24 PT-OP-B Current Condition Start: 06/13/24 17:47 Freq: Status: Active Protocol: Document 06/13/24 11:35 DCW (Rec: 06/14/24 10:55 DCW [id number]) Current Condition History of Current Condition Onset Date Four year history Current Complaints Hip pain, sudden buckling of right leg, Stenosis History of Current Condition Pt is an 83 year old male presenting with a multi-year history of back and right hip pain. Pt notes he believes 2020 was the first time he went to see a doctor about it, reports it was recommended that he have a fusion at that time, but he didn't go through with it. In the mean time, his has been having an increase in right posterior hip pain. Was taking pain pills for a while, but stopped so he could get a better idea of what was flaring it up or calming it down. Increased pain when walking too much, rolling over, and when first getting up in the morning. Was recently seen by a new physician, pt reports that she actually listened to me, and I got actual information about everything! Was diagnosed with severe stenosis , facet arthropathy, and neuropathy. Pt notes he was recently working with a polymer specialist, they're trying to straighten my spine out, but I decided to stop with them until I did my PT, because if then straighten out my spine, great, I'll have a straight spine, but it won't help this hip pain. Currently uses a 4WW due to complaints of sudden, unexpected right leg buckling. Treatment Goals Patient/Caregiver Goals Pt's main goal is to decrease right posterior hip pain, and to eliminate occurrences of right leg buckling PT-OP-C Subjective Start: 06/13/24 17:47 Freq: Status: Active Protocol: Document 06/25/24 14:33 DCW (Rec: 06/25/24 15:19 DCW [id number]) OP-PT Subjective Patient Comments Patient Comments Pt notes he was really hurting after doing his HEP on Tuesday PT-OP-F Manual Assessment Start: 06/13/24 17:47 Freq: Status: Active Protocol: Document 06/13/24 11:35 DCW (Rec: 06/14/24 10:55 DCW [id number]) Manual Assessments Soft Tissue Assessment Soft Tissue Mobility Assessment Severe tone/hypomobility of bilateral hamstrings, hip flexors, ITB, piriformis, glutes Joint Mobility Assessment Joint Mobility Assessment Moderate-severe lumbar hypomobility PT-OP-L Special Tests Start: 06/13/24 17:47 Freq: Status: Active Protocol: Document 06/13/24 11:35 DCW (Rec: 06/14/24 10:55 DCW [id number]) Special Tests Lumbar Spine Special Tests Straight Leg Raise Test Results Hamstring tightness L 50?, R 40? Slump Test Results Hamstring tightness Compression Test Results Negative A-P Shearing Test Results Negative Hip Special Tests Souleymane Test Results Bilateral hip flexor stretch Piriformis Test Results Bilateral stiffness LEO Test Results Ipsilateral hip pain bilaterally PT-OP-M Strength Start: 06/13/24 17:47 Freq: Status: Active Protocol: Document 06/13/24 11:35 DCW (Rec: 06/14/24 10:55 DCW [id number]) Hip Strength Hip Manual Muscle Testing Right Flexion (L2) 4- Good- Abduction 4- Good- Adduction 4- Good- External Rotation 4- Good- Internal Rotation 4- Good- Comments It takes a lot of effort Left Flexion (L2) 4- Good- Abduction 4- Good- Adduction 4- Good- External Rotation 4- Good- Internal Rotation 4- Good- Comments It takes a lot of effort PT-OP-Q Treatments Start: 06/13/24 17:47 Freq: Status: Active Protocol: Document 06/25/24 14:33 DCW (Rec: 06/25/24 15:19 DCW [id number]) Gym Equipment Therapeutic Ball Hip Flexion Exercise Details Resisted hip/knee flexion /c feet on ball Ball Size/Color Red - 55 cm Lv 2 T-band Body Position Supine LTR Exercise Details LTR Ball Size/Color Red - 55 cm Body Position Supine Therapeutic Exercises Supine Exercises Piriformis Supine Exercise Name Knee to opposite shoulder - Piriformis stretch Side bilateral ITB Stretch Supine Exercise Name ITB Stretch Side bilateral Comments Hooklying Hamstring Stretch Supine Exercise Name Hamstring stretch Side bilateral Manual Therapy Treatment Consent Patient gave verbal consent for manual Yes treatment Soft Tissue Mobilization Lumbar Body Location Paraspinals, Glutes, Piriformis Mobilization Type Sustained Pressure,Trigger Point Release Body Position Sidelying PT-OP-T Assessment and Plan Start: 06/13/24 17:47 Freq: Status: Active Protocol: Document 06/25/24 14:33 DCW (Rec: 06/25/24 15:19 DCW [id number]) Physical Therapy Assessment Impairments Impairments Activity Tolerance,Functional Activities,Functional Mobility ,Pain,Soft Tissue Mobility, Strength,Tone Goals Three Impairment Pt displays general LE weakness and quickly fatigues with testing Vacuum Cleaner Repair Person Goal (LTG) Pt to increase bilateral LE strength to 4/5 or better in all tested planes in order to improve stability during gait and decrease instances of right leg buckling LTG Duration 08/13/24 Two Impairment Pt experiences increased right hip pain walking longer than 10 minutes Vacuum Cleaner Repair Person Goal (LTG) Pt to report ability to tolerate ambulating 20 minutes or longer with use of a 4WW without increased right hip pain LTG Duration 08/13/24 One Impairment Pt does not have an appropriate home exercise program Short Term Goal (STG) Pt to be independent and compliant with an appropriate HEP STG Duration 07/14/24 Assessment Summary Assessment Pt moving much better following treatment today, felt like he had loosened up significantly by end of session. Discussed stopping PPT /c SLR and Air Cycle from HEP, felt it was too much of an increase too quickly. Continue to focus on stretching, lumbar mobility, and strengthening core/hips Physical Therapy Plan Frequency and Duration Frequency of Treatment 2x/Week Plan of Care Start Date 06/13/24 Plan of Care End Date 08/13/24 Therapeutic Interventions Therapeutic Interventions Balance Training,Gait Training ,Home Exercise Program,Joint Mobilizations,Manual Therapy, Neuromuscular Re-education, Patient/Caregiver Education, Self-Care/Home Management,Soft Tissue Mobilization,Taping, Therapeutic Activities, Therapeutic Exercises Modalities Cold Pack/Ice Massage,Electric Stimulation,Hot Packs Next Visit Focus/Plan Next Note Type Treatment Note Next Visit Plan bilateral hip flexibility, core strengthening, gait, functional mobility
--- NOTE | 2024-06-28 16:27 | PT.OTN ---
Current Diagnoses Pain in right hip (06/28/24) Spondylosis without myelopathy or radiculopathy, lumbar region (06/28/24) Spinal stenosis, lumbar region without neurogenic claudication (06/28/24) Physical Therapy Treatment Note PT-OP-A Visit Information Start: 06/13/24 17:47 Freq: Status: Active Protocol: Document 06/28/24 13:18 AB (Rec: 06/28/24 16:27 AB [id number]) Out-Patient Physical Therapy Visit Information Visit Information Visit Type Treatment Note Visit Start Time 14:38 Visit Stop Time 15:18 Visit Number 6 Number of BREEDER HEN SERVICE TECHNICIAN Visits 1 Evaluation Information Evaluation Date 06/13/24 PT-OP-B Current Condition Start: 06/13/24 17:47 Freq: Status: Active Protocol: Document 06/13/24 11:35 DCW (Rec: 06/14/24 10:55 DCW [id number]) Current Condition History of Current Condition Onset Date Four year history Current Complaints Hip pain, sudden buckling of right leg, Stenosis History of Current Condition Pt is an 83 year old male presenting with a multi-year history of back and right hip pain. Pt notes he believes 2020 was the first time he went to see a doctor about it, reports it was recommended that he have a fusion at that time, but he didn't go through with it. In the mean time, his has been having an increase in right posterior hip pain. Was taking pain pills for a while, but stopped so he could get a better idea of what was flaring it up or calming it down. Increased pain when walking too much, rolling over, and when first getting up in the morning. Was recently seen by a new physician, pt reports that she actually listened to me, and I got actual information about everything! Was diagnosed with severe stenosis , facet arthropathy, and neuropathy. Pt notes he was recently working with a learning support specialist, they're trying to straighten my spine out, but I decided to stop with them until I did my PT, because if then straighten out my spine, great, I'll have a straight spine, but it won't help this hip pain. Currently uses a 4WW due to complaints of sudden, unexpected right leg buckling. Treatment Goals Patient/Caregiver Goals Pt's main goal is to decrease right posterior hip pain, and to eliminate occurrences of right leg buckling PT-OP-C Subjective Start: 06/13/24 17:47 Freq: Status: Active Protocol: Document 06/28/24 13:18 AB (Rec: 06/28/24 16:27 AB [id number]) OP-PT Subjective Patient Comments Patient Comments Patient reports having no back pain. Patient reports he is feeling better since previous session, reports body started relaxing when PT last session pushed on a muscle. Patient reports he hasn't been moving around due to sinus problem, so isn't sure if knee is still buckling. PT-OP-F Manual Assessment Start: 06/13/24 17:47 Freq: Status: Active Protocol: Document 06/13/24 11:35 DCW (Rec: 06/14/24 10:55 DCW [id number]) Manual Assessments Soft Tissue Assessment Soft Tissue Mobility Assessment Severe tone/hypomobility of bilateral hamstrings, hip flexors, ITB, piriformis, glutes Joint Mobility Assessment Joint Mobility Assessment Moderate-severe lumbar hypomobility PT-OP-L Special Tests Start: 06/13/24 17:47 Freq: Status: Active Protocol: Document 06/13/24 11:35 DCW (Rec: 06/14/24 10:55 DCW [id number]) Special Tests Lumbar Spine Special Tests Straight Leg Raise Test Results Hamstring tightness L 50?, R 40? Slump Test Results Hamstring tightness Compression Test Results Negative A-P Shearing Test Results Negative Hip Special Tests Souleymane Test Results Bilateral hip flexor stretch Piriformis Test Results Bilateral stiffness LEO Test Results Ipsilateral hip pain bilaterally PT-OP-M Strength Start: 06/13/24 17:47 Freq: Status: Active Protocol: Document 06/13/24 11:35 DCW (Rec: 06/14/24 10:55 DCW [id number]) Hip Strength Hip Manual Muscle Testing Right Flexion (L2) 4- Good- Abduction 4- Good- Adduction 4- Good- External Rotation 4- Good- Internal Rotation 4- Good- Comments It takes a lot of effort Left Flexion (L2) 4- Good- Abduction 4- Good- Adduction 4- Good- External Rotation 4- Good- Internal Rotation 4- Good- Comments It takes a lot of effort PT-OP-Q Treatments Start: 06/13/24 17:47 Freq: Status: Active Protocol: Document 06/28/24 13:18 AB (Rec: 06/28/24 16:27 AB [id number]) Therapeutic Exercises Supine Exercises abdominal bracing with LE extension Supine Exercise Name Patient ed rationale of abdominal bracing to dec LS extension with LE movem Side bilateral Equipment Used HEP Reps/Minutes X10 Comments Verbal cues to brace as LE moves away from core modified Souleymane stretch Supine Exercise Name one LE on bolster opp LE on mat Equipment Used HEP Reps/Minutes 1-2 min each LE X2 Comments Verbal and tactile cues for breathing from diaphragm Hamstring Stretch Supine Exercise Name Hamstring stretch Side bilateral Reps/Minutes each LE 60 seconds Sitting Exercises Piriformis Sitting Exercise Name Seated figure-4 Reps/Minutes 60 sec X 1 each LE Standing Exercises sit to stand Standing Exercise Name HEP Side bilateral Reps/Minutes X10 Comments Monitored for pain and form PT-OP-T Assessment and Plan Start: 06/13/24 17:47 Freq: Status: Active Protocol: Document 06/28/24 13:18 AB (Rec: 06/28/24 16:27 AB [id number]) Physical Therapy Assessment Goals Three Impairment Pt displays general LE weakness and quickly fatigues with testing Oil Lease Operator Goal (LTG) Pt to increase bilateral LE strength to 4/5 or better in all tested planes in order to improve stability during gait and decrease instances of right leg buckling LTG Duration 08/13/24 Two Impairment Pt experiences increased right hip pain walking longer than 10 minutes Oil Lease Operator Goal (LTG) Pt to report ability to tolerate ambulating 20 minutes or longer with use of a 4WW without increased right hip pain LTG Duration 08/13/24 One Impairment Pt does not have an appropriate home exercise program Short Term Goal (STG) Pt to be independent and compliant with an appropriate HEP STG Duration 07/14/24 Assessment Summary Assessment Patient reports muscles soreness end of session, no pain. Patient into session reporting signifcant decrease in right LE symptoms post last session. Inc time to perform all tasks with patient repeating verbal cues and at time reading/reviewing information on written HEP. Physical Therapy Plan Frequency and Duration Frequency of Treatment 2x/Week Plan of Care Start Date 06/13/24 Plan of Care End Date 08/13/24 Next Visit Focus/Plan Next Note Type Treatment Note Next Visit Plan bilateral hip flexibility, core strengthening, gait, functional mobility
--- NOTE | 2024-07-02 16:21 | PT.OTN ---
Current Diagnoses Pain in right hip (07/02/24) Spondylosis without myelopathy or radiculopathy, lumbar region (07/02/24) Spinal stenosis, lumbar region without neurogenic claudication (07/02/24) Physical Therapy Treatment Note PT-OP-A Visit Information Start: 06/13/24 17:47 Freq: Status: Active Protocol: Document 07/02/24 13:09 AB (Rec: 07/02/24 16:20 AB [id number]) Out-Patient Physical Therapy Visit Information Visit Information Visit Type Treatment Note Visit Note Access Code [email or web address] Visit Start Time 14:34 Visit Stop Time 15:18 Visit Number 7 Number of HUMAN FACTORS ENGINEER Visits 2 Evaluation Information Evaluation Date 06/13/24 PT-OP-B Current Condition Start: 06/13/24 17:47 Freq: Status: Active Protocol: Document 06/13/24 11:35 DCW (Rec: 06/14/24 10:55 DCW [id number]) Current Condition History of Current Condition Onset Date Four year history Current Complaints Hip pain, sudden buckling of right leg, Stenosis History of Current Condition Pt is an 83 year old male presenting with a multi-year history of back and right hip pain. Pt notes he believes 2020 was the first time he went to see a doctor about it, reports it was recommended that he have a fusion at that time, but he didn't go through with it. In the mean time, his has been having an increase in right posterior hip pain. Was taking pain pills for a while, but stopped so he could get a better idea of what was flaring it up or calming it down. Increased pain when walking too much, rolling over, and when first getting up in the morning. Was recently seen by a new physician, pt reports that she actually listened to me, and I got actual information about everything! Was diagnosed with severe stenosis , facet arthropathy, and neuropathy. Pt notes he was recently working with a staffing specialist, they're trying to straighten my spine out, but I decided to stop with them until I did my PT, because if then straighten out my spine, great, I'll have a straight spine, but it won't help this hip pain. Currently uses a 4WW due to complaints of sudden, unexpected right leg buckling. Treatment Goals Patient/Caregiver Goals Pt's main goal is to decrease right posterior hip pain, and to eliminate occurrences of right leg buckling PT-OP-C Subjective Start: 06/13/24 17:47 Freq: Status: Active Protocol: Document 07/02/24 13:09 AB (Rec: 07/02/24 16:20 AB [id number]) OP-PT Subjective Patient Comments Patient Comments Patient reports soreness SI area, but not soreness. Patient reports having no pain or buckling. Patient reports performing HEP. Patient reports able to walk through [place] without buckling, but did have buttocks pain. PT-OP-F Manual Assessment Start: 06/13/24 17:47 Freq: Status: Active Protocol: Document 06/13/24 11:35 DCW (Rec: 06/14/24 10:55 DCW [id number]) Manual Assessments Soft Tissue Assessment Soft Tissue Mobility Assessment Severe tone/hypomobility of bilateral hamstrings, hip flexors, ITB, piriformis, glutes Joint Mobility Assessment Joint Mobility Assessment Moderate-severe lumbar hypomobility PT-OP-L Special Tests Start: 06/13/24 17:47 Freq: Status: Active Protocol: Document 06/13/24 11:35 DCW (Rec: 06/14/24 10:55 DCW [id number]) Special Tests Lumbar Spine Special Tests Straight Leg Raise Test Results Hamstring tightness L 50?, R 40? Slump Test Results Hamstring tightness Compression Test Results Negative A-P Shearing Test Results Negative Hip Special Tests Souleymane Test Results Bilateral hip flexor stretch Piriformis Test Results Bilateral stiffness LEO Test Results Ipsilateral hip pain bilaterally PT-OP-M Strength Start: 06/13/24 17:47 Freq: Status: Active Protocol: Document 06/13/24 11:35 DCW (Rec: 06/14/24 10:55 DCW [id number]) Hip Strength Hip Manual Muscle Testing Right Flexion (L2) 4- Good- Abduction 4- Good- Adduction 4- Good- External Rotation 4- Good- Internal Rotation 4- Good- Comments It takes a lot of effort Left Flexion (L2) 4- Good- Abduction 4- Good- Adduction 4- Good- External Rotation 4- Good- Internal Rotation 4- Good- Comments It takes a lot of effort PT-OP-Q Treatments Start: 06/13/24 17:47 Freq: Status: Active Protocol: Document 07/02/24 13:09 AB (Rec: 07/02/24 16:20 AB [id number]) Therapeutic Exercises Supine Exercises abdominal bracing with LE extension Supine Exercise Name Patient ed rationale of abdominal bracing to dec LS extension with LE movem Side bilateral Equipment Used HEP Reps/Minutes X10 Comments Verbal cues to brace as LE moves away from core modified Souleymane stretch Supine Exercise Name one LE on bolster opp LE on mat Equipment Used HEP Reps/Minutes 1-2 min each LE X2 Comments Verbal and tactile cues for breathing from diaphragm Piriformis Supine Exercise Name Knee to opposite shoulder - Piriformis stretch HEP Side bilateral Reps/Minutes 60 sec each LE X 2 Sidelying Exercises Reverse Clamshell Sidelying Exercise Name Reverse Clamshell Side bilateral Reps/Minutes x10 Standing Exercises sit to stand Standing Exercise Name HEP from a raised seat height Pt ed to perform with FWW in front Side bilateral Reps/Minutes X5 and X1 Comments Monitored for pain and form Manual Therapy Treatment Soft Tissue Mobilization Lumbar Body Location Paraspinals, Glutes, Piriformis Mobilization Type Cross-Friction,Rolling, Sustained Pressure Body Position Sidelying Comments bilateral PT-OP-T Assessment and Plan Start: 06/13/24 17:47 Freq: Status: Active Protocol: Document 07/02/24 13:09 AB (Rec: 07/02/24 16:20 AB [id number]) Physical Therapy Assessment Goals Three Impairment Pt displays general LE weakness and quickly fatigues with testing Senior Asp Net Developer Goal (LTG) Pt to increase bilateral LE strength to 4/5 or better in all tested planes in order to improve stability during gait and decrease instances of right leg buckling LTG Duration 08/13/24 Two Impairment Pt experiences increased right hip pain walking longer than 10 minutes Alf Goal (LTG) Pt to report ability to tolerate ambulating 20 minutes or longer with use of a 4WW without increased right hip pain LTG Duration 08/13/24 One Impairment Pt does not have an appropriate home exercise program Short Term Goal (STG) Pt to be independent and compliant with an appropriate HEP STG Duration 07/14/24 Assessment Summary Assessment Good return demonstration for review of bracing with LE extension, sit to stand with UE use and adequate hip hinge, slightly unsteady X1 due to momentum, FWW positioned in front and noted on HEP to position FWW in front of patient. Physical Therapy Plan Frequency and Duration Frequency of Treatment 2x/Week Plan of Care Start Date 06/13/24 Plan of Care End Date 08/13/24 Next Visit Focus/Plan Next Note Type Treatment Note Next Visit Plan bilateral hip flexibility, core strengthening, gait, functional mobility
--- NOTE | 2024-07-09 16:36 | PT.OTN ---
Current Diagnoses Pain in right hip (07/09/24) Spondylosis without myelopathy or radiculopathy, lumbar region (07/09/24) Spinal stenosis, lumbar region without neurogenic claudication (07/09/24) Physical Therapy Treatment Note PT-OP-A Visit Information Start: 06/13/24 17:47 Freq: Status: Active Protocol: Document 07/09/24 12:37 AB (Rec: 07/09/24 16:36 AB [id number]) Out-Patient Physical Therapy Visit Information Visit Information Visit Type Treatment Note Visit Note Access Code [email or web address] Visit Start Time 14:34 Visit Stop Time 15:17 Visit Number 8 Number of BARBERING TEACHER Visits 3 Evaluation Information Evaluation Date 06/13/24 PT-OP-B Current Condition Start: 06/13/24 17:47 Freq: Status: Active Protocol: Document 06/13/24 11:35 DCW (Rec: 06/14/24 10:55 DCW [id number]) Current Condition History of Current Condition Onset Date Four year history Current Complaints Hip pain, sudden buckling of right leg, Stenosis History of Current Condition Pt is an 83 year old male presenting with a multi-year history of back and right hip pain. Pt notes he believes 2020 was the first time he went to see a doctor about it, reports it was recommended that he have a fusion at that time, but he didn't go through with it. In the mean time, his has been having an increase in right posterior hip pain. Was taking pain pills for a while, but stopped so he could get a better idea of what was flaring it up or calming it down. Increased pain when walking too much, rolling over, and when first getting up in the morning. Was recently seen by a new physician, pt reports that she actually listened to me, and I got actual information about everything! Was diagnosed with severe stenosis , facet arthropathy, and neuropathy. Pt notes he was recently working with a provider education specialist, they're trying to straighten my spine out, but I decided to stop with them until I did my PT, because if then straighten out my spine, great, I'll have a straight spine, but it won't help this hip pain. Currently uses a 4WW due to complaints of sudden, unexpected right leg buckling. Treatment Goals Patient/Caregiver Goals Pt's main goal is to decrease right posterior hip pain, and to eliminate occurrences of right leg buckling PT-OP-C Subjective Start: 06/13/24 17:47 Freq: Status: Active Protocol: Document 07/09/24 12:37 AB (Rec: 07/09/24 16:36 AB [id number]) OP-PT Subjective Patient Comments Patient Comments Patient reports 1/10 right glute soreness, not pain. Patient reports it started post what he describes as the piriformis stretch. Patient reports having no buckling. PT-OP-F Manual Assessment Start: 06/13/24 17:47 Freq: Status: Active Protocol: Document 06/13/24 11:35 DCW (Rec: 06/14/24 10:55 DCW [id number]) Manual Assessments Soft Tissue Assessment Soft Tissue Mobility Assessment Severe tone/hypomobility of bilateral hamstrings, hip flexors, ITB, piriformis, glutes Joint Mobility Assessment Joint Mobility Assessment Moderate-severe lumbar hypomobility PT-OP-L Special Tests Start: 06/13/24 17:47 Freq: Status: Active Protocol: Document 06/13/24 11:35 DCW (Rec: 06/14/24 10:55 DCW [id number]) Special Tests Lumbar Spine Special Tests Straight Leg Raise Test Results Hamstring tightness L 50?, R 40? Slump Test Results Hamstring tightness Compression Test Results Negative A-P Shearing Test Results Negative Hip Special Tests Souleymane Test Results Bilateral hip flexor stretch Piriformis Test Results Bilateral stiffness LEO Test Results Ipsilateral hip pain bilaterally PT-OP-M Strength Start: 06/13/24 17:47 Freq: Status: Active Protocol: Document 06/13/24 11:35 DCW (Rec: 06/14/24 10:55 DCW [id number]) Hip Strength Hip Manual Muscle Testing Right Flexion (L2) 4- Good- Abduction 4- Good- Adduction 4- Good- External Rotation 4- Good- Internal Rotation 4- Good- Comments It takes a lot of effort Left Flexion (L2) 4- Good- Abduction 4- Good- Adduction 4- Good- External Rotation 4- Good- Internal Rotation 4- Good- Comments It takes a lot of effort PT-OP-Q Treatments Start: 06/13/24 17:47 Freq: Status: Active Protocol: Document 07/09/24 12:37 AB (Rec: 07/09/24 16:36 AB [id number]) Therapeutic Exercises Supine Exercises modified Souleymane stretch Supine Exercise Name one LE off mat opp knee to chest with towel Side bilateral Equipment Used x 1 each LE Reps/Minutes 1 minute Piriformis Supine Exercise Name Knee to opposite shoulder - Piriformis stretch HEP Side bilateral Reps/Minutes 60 sec each LE X 2 Sidelying Exercises Reverse Clamshell Sidelying Exercise Name Reverse Clamshell Side bilateral Reps/Minutes x10 Clamshell Sidelying Exercise Name Clamshell Side bilateral Reps/Minutes x10 Sitting Exercises seated hip abd with band Side bilateral Resistance elim ira green band Reps/Minutes one minute X 1 Comments verbal cues Standing Exercises standing calf stretches Standing Exercise Name on GME Gastroc and Soleus Reps/Minutes 60 sec X2 each sit to stand Standing Exercise Name HEP from a raised seat height Pt ed to perform with FWW in front Side bilateral Reps/Minutes X10 Comments Monitored for pain and form Manual Therapy Treatment Consent Patient gave verbal consent for manual Yes treatment Soft Tissue Mobilization Lumbar Body Location R Paraspinals, Glutes, Piriformis Mobilization Type Cross-Friction,Rolling, Sustained Pressure Body Position Sidelying Comments bilateral PT-OP-T Assessment and Plan Start: 06/13/24 17:47 Freq: Status: Active Protocol: Document 07/09/24 12:37 AB (Rec: 07/09/24 16:36 AB [id number]) Physical Therapy Assessment Goals Three Impairment Pt displays general LE weakness and quickly fatigues with testing Custodial Goal (LTG) Pt to increase bilateral LE strength to 4/5 or better in all tested planes in order to improve stability during gait and decrease instances of right leg buckling LTG Duration 08/13/24 Two Impairment Pt experiences increased right hip pain walking longer than 10 minutes Registered Massage Therapist Goal (LTG) Pt to report ability to tolerate ambulating 20 minutes or longer with use of a 4WW without increased right hip pain LTG Duration 08/13/24 One Impairment Pt does not have an appropriate home exercise program Short Term Goal (STG) Pt to be independent and compliant with an appropriate HEP STG Duration 07/14/24 Assessment Summary Assessment Good farrukh to sit to stand with UE use this session, adequate hip hinge. Patient into session with reports of no incidents of knee buckling. Physical Therapy Plan Frequency and Duration Frequency of Treatment 2x/Week Plan of Care Start Date 06/13/24 Plan of Care End Date 08/13/24 Next Visit Focus/Plan Next Note Type Progress Note Next Visit Plan bilateral hip flexibility, core strengthening, gait, functional mobility
--- NOTE | 2024-07-16 15:09 | PT.OTN ---
Current Diagnoses Pain in right hip (07/16/24) Spondylosis without myelopathy or radiculopathy, lumbar region (07/16/24) Spinal stenosis, lumbar region without neurogenic claudication (07/16/24) Physical Therapy Treatment Note PT-OP-A Visit Information Start: 06/13/24 17:47 Freq: Status: Active Protocol: Document 07/16/24 14:30 DCW (Rec: 07/16/24 15:09 DCW [id number]) Out-Patient Physical Therapy Visit Information Visit Information Visit Type Progress Note Visit Start Time 14:30 Visit Stop Time 15:15 Visit Number 9 Number of FILM CUTTER Visits 0 Evaluation Information Evaluation Date 06/13/24 PT-OP-B Current Condition Start: 06/13/24 17:47 Freq: Status: Active Protocol: Document 06/13/24 11:35 DCW (Rec: 06/14/24 10:55 DCW [id number]) Current Condition History of Current Condition Onset Date Four year history Current Complaints Hip pain, sudden buckling of right leg, Stenosis History of Current Condition Pt is an 83 year old male presenting with a multi-year history of back and right hip pain. Pt notes he believes 2020 was the first time he went to see a doctor about it, reports it was recommended that he have a fusion at that time, but he didn't go through with it. In the mean time, his has been having an increase in right posterior hip pain. Was taking pain pills for a while, but stopped so he could get a better idea of what was flaring it up or calming it down. Increased pain when walking too much, rolling over, and when first getting up in the morning. Was recently seen by a new physician, pt reports that she actually listened to me, and I got actual information about everything! Was diagnosed with severe stenosis , facet arthropathy, and neuropathy. Pt notes he was recently working with a customer retention specialist, they're trying to straighten my spine out, but I decided to stop with them until I did my PT, because if then straighten out my spine, great, I'll have a straight spine, but it won't help this hip pain. Currently uses a 4WW due to complaints of sudden, unexpected right leg buckling. Treatment Goals Patient/Caregiver Goals Pt's main goal is to decrease right posterior hip pain, and to eliminate occurrences of right leg buckling PT-OP-C Subjective Start: 06/13/24 17:47 Freq: Status: Active Protocol: Document 07/16/24 14:30 DCW (Rec: 07/16/24 15:09 DCW [id number]) OP-PT Subjective Patient Comments Patient Comments Pt notes I think I'm getting over the flu. Admits he often gets sore the next day if he over-does activity PT-OP-F Manual Assessment Start: 06/13/24 17:47 Freq: Status: Active Protocol: Document 06/13/24 11:35 DCW (Rec: 06/14/24 10:55 DCW [id number]) Manual Assessments Soft Tissue Assessment Soft Tissue Mobility Assessment Severe tone/hypomobility of bilateral hamstrings, hip flexors, ITB, piriformis, glutes Joint Mobility Assessment Joint Mobility Assessment Moderate-severe lumbar hypomobility PT-OP-L Special Tests Start: 06/13/24 17:47 Freq: Status: Active Protocol: Document 06/13/24 11:35 DCW (Rec: 06/14/24 10:55 DCW [id number]) Special Tests Lumbar Spine Special Tests Straight Leg Raise Test Results Hamstring tightness L 50?, R 40? Slump Test Results Hamstring tightness Compression Test Results Negative A-P Shearing Test Results Negative Hip Special Tests Souleymane Test Results Bilateral hip flexor stretch Piriformis Test Results Bilateral stiffness LEO Test Results Ipsilateral hip pain bilaterally PT-OP-M Strength Start: 06/13/24 17:47 Freq: Status: Active Protocol: Document 06/13/24 11:35 DCW (Rec: 06/14/24 10:55 DCW [id number]) Hip Strength Hip Manual Muscle Testing Right Flexion (L2) 4- Good- Abduction 4- Good- Adduction 4- Good- External Rotation 4- Good- Internal Rotation 4- Good- Comments It takes a lot of effort Left Flexion (L2) 4- Good- Abduction 4- Good- Adduction 4- Good- External Rotation 4- Good- Internal Rotation 4- Good- Comments It takes a lot of effort PT-OP-Q Treatments Start: 06/13/24 17:47 Freq: Status: Active Protocol: Document 07/16/24 14:30 DCW (Rec: 07/16/24 15:09 DCW [id number]) Gym Equipment Therapeutic Ball Pelvic Tilts Exercise Details Pelvic tilts/circles Ball Size/Color Green - 65 cm Body Position Sitting Hip Flexion Exercise Details Resisted hip/knee flexion /c feet on ball Ball Size/Color Red - 55 cm Lv 2 T-band Body Position Supine LTR Exercise Details LTR Ball Size/Color Red - 55 cm Body Position Supine Therapeutic Exercises Supine Exercises Piriformis Supine Exercise Name Knee to opposite shoulder - Piriformis stretch HEP Side bilateral Reps/Minutes 60 sec each LE X 2 ITB Stretch Supine Exercise Name ITB Stretch Side bilateral Comments Hooklying Hamstring Stretch Supine Exercise Name Hamstring stretch Side bilateral Reps/Minutes each LE 60 seconds Other Exercises Resisted Ambulation Other Exercise Name Resisted side-stepping Resistance Green loop PT-OP-T Assessment and Plan Start: 06/13/24 17:47 Freq: Status: Active Protocol: Document 07/16/24 14:30 DCW (Rec: 07/16/24 15:09 DCW [id number]) Physical Therapy Assessment Goals Three Impairment Pt displays general LE weakness and quickly fatigues with testing Usp Goal (LTG) Pt to increase bilateral LE strength to 4/5 or better in all tested planes in order to improve stability during gait and decrease instances of right leg buckling LTG Duration 08/13/24 Two Impairment Pt experiences increased right hip pain walking longer than 10 minutes Exterminator Goal (LTG) Pt to report ability to tolerate ambulating 20 minutes or longer with use of a 4WW without increased right hip pain LTG Duration 08/13/24 One Impairment Pt does not have an appropriate home exercise program Short Term Goal (STG) Pt to be independent and compliant with an appropriate HEP STG Duration 07/14/24 Assessment Summary Assessment Pt noting improvement in gait tolerance, able to walk around [employer] twice using a cart, no longer experiencing knee buckling. Was not sore afterward. Showing very good compliance with HEP. Continue to work on tone management, LE strengthening, and activity tolerance. Physical Therapy Plan Frequency and Duration Frequency of Treatment 2x/Week Plan of Care Start Date 06/13/24 Plan of Care End Date 08/13/24 Next Visit Focus/Plan Next Note Type Progress Note Next Visit Plan bilateral hip flexibility, core strengthening, gait, functional mobility
--- NOTE | 2024-08-13 13:01 | PT.OTN ---
Current Diagnoses Pain in right hip (08/13/24) Spondylosis without myelopathy or radiculopathy, lumbar region (08/13/24) Spinal stenosis, lumbar region without neurogenic claudication (08/13/24) Physical Therapy Treatment Note PT-OP-A Visit Information Start: 06/13/24 17:47 Freq: Status: Active Protocol: Document 08/13/24 12:15 DCW (Rec: 08/13/24 13:00 DCW [id number]) Out-Patient Physical Therapy Visit Information Visit Information Visit Type Progress Note Visit Start Time 12:15 Visit Stop Time 13:00 Visit Number 10 Number of JAVA MOBILE DEVELOPER Visits 0 Evaluation Information Evaluation Date 06/13/24 PT-OP-B Current Condition Start: 06/13/24 17:47 Freq: Status: Active Protocol: Document 06/13/24 11:35 DCW (Rec: 06/14/24 10:55 DCW [id number]) Current Condition History of Current Condition Onset Date Four year history Current Complaints Hip pain, sudden buckling of right leg, Stenosis History of Current Condition Pt is an 83 year old male presenting with a multi-year history of back and right hip pain. Pt notes he believes 2020 was the first time he went to see a doctor about it, reports it was recommended that he have a fusion at that time, but he didn't go through with it. In the mean time, his has been having an increase in right posterior hip pain. Was taking pain pills for a while, but stopped so he could get a better idea of what was flaring it up or calming it down. Increased pain when walking too much, rolling over, and when first getting up in the morning. Was recently seen by a new physician, pt reports that she actually listened to me, and I got actual information about everything! Was diagnosed with severe stenosis , facet arthropathy, and neuropathy. Pt notes he was recently working with a operations specialists, they're trying to straighten my spine out, but I decided to stop with them until I did my PT, because if then straighten out my spine, great, I'll have a straight spine, but it won't help this hip pain. Currently uses a 4WW due to complaints of sudden, unexpected right leg buckling. Treatment Goals Patient/Caregiver Goals Pt's main goal is to decrease right posterior hip pain, and to eliminate occurrences of right leg buckling PT-OP-C Subjective Start: 06/13/24 17:47 Freq: Status: Active Protocol: Document 08/13/24 12:15 DCW (Rec: 08/13/24 12:20 DCW [id number]) OP-PT Subjective Patient Comments Patient Comments Following last visit, pt woke up in extreme pain. Had a Dr appointment, forced himself to get up and get around, but then came back and went to bed , woke up the next days, felt something was stringe, and finally realized that he had no pain, was feeling great, spent ~one week up, moving around, walking, feeling great . Has since returned to his usual levels of soreness. PT-OP-F Manual Assessment Start: 06/13/24 17:47 Freq: Status: Active Protocol: Document 08/13/24 12:15 DCW (Rec: 08/13/24 12:29 DCW [id number]) Manual Assessments Soft Tissue Assessment Soft Tissue Mobility Assessment Moderate tone/hypomobility of bilateral hamstrings, hip flexors, ITB, piriformis, glutes Joint Mobility Assessment Joint Mobility Assessment Moderate-severe lumbar hypomobility PT-OP-L Special Tests Start: 06/13/24 17:47 Freq: Status: Active Protocol: Document 08/13/24 12:15 DCW (Rec: 08/13/24 12:29 DCW [id number]) Special Tests Lumbar Spine Special Tests Straight Leg Raise Test Results Hamstring tightness L 55?, R 52? Slump Test Results Hamstring tightness Hip Special Tests Souleymane Test Results Bilateral hip flexor tightness Piriformis Test Results Bilateral stiffness LEO Test Results Negative PT-OP-M Strength Start: 06/13/24 17:47 Freq: Status: Active Protocol: Document 08/13/24 12:15 DCW (Rec: 08/13/24 12:29 DCW [id number]) Hip Strength Hip Manual Muscle Testing Right Flexion (L2) 4 Good Abduction 4+ Good+ Adduction 4 Good External Rotation 4 Good Internal Rotation 4 Good Left Flexion (L2) 4 Good Abduction 4+ Good+ Adduction 4 Good External Rotation 4 Good Internal Rotation 4 Good Knee Strength Knee Manual Muscle Testing Right Flexion (S2) 4 Good Extension (L3) 4+ Good+ Left Flexion (S2) 4 Good Extension (L3) 4+ Good+ PT-OP-Q Treatments Start: 06/13/24 17:47 Freq: Status: Active Protocol: Document 08/13/24 12:15 DCW (Rec: 08/13/24 13:00 DCW [id number]) Gym Equipment Therapeutic Ball Hip Flexion Exercise Details Resisted hip/knee flexion /c feet on ball Ball Size/Color Red - 55 cm Lv 2 T-band Body Position Supine LTR Exercise Details LTR Ball Size/Color Red - 55 cm Body Position Supine Therapeutic Exercises Supine Exercises Piriformis Supine Exercise Name Knee to opposite shoulder - Piriformis stretch HEP Side bilateral Reps/Minutes 60 sec each LE X 2 ITB Stretch Supine Exercise Name ITB Stretch Side bilateral Comments Hooklying Hamstring Stretch Supine Exercise Name Hamstring stretch Side bilateral Reps/Minutes each LE 60 seconds Other Exercises Resisted Ambulation Other Exercise Name Resisted side-stepping Resistance Green loop PT-OP-T Assessment and Plan Start: 06/13/24 17:47 Freq: Status: Active Protocol: Document 08/13/24 12:15 DCW (Rec: 08/13/24 13:00 DCW [id number]) Physical Therapy Assessment Impairments Impairments Activity Tolerance,Functional Activities,Functional Mobility ,Pain,Soft Tissue Mobility, Strength,Tone Goals Three Impairment Pt displays general LE weakness and quickly fatigues with testing Cocoa Bean Roaster Goal (LTG) Pt to increase bilateral LE strength to 4/5 or better in all tested planes in order to improve stability during gait and decrease instances of right leg buckling LTG Duration Met Two Impairment Pt experiences increased right hip pain walking longer than 10 minutes Senior Care Goal (LTG) Pt to report ability to tolerate ambulating 20 minutes or longer with use of a 4WW without increased right hip pain LTG Duration 10/14/24 One Impairment Pt does not have an appropriate home exercise program Short Term Goal (STG) Pt to be independent and compliant with an appropriate HEP STG Duration 09/13/24 Assessment Summary Assessment Pt showing improvement in activity tolerance, strength, and functional mobility. Had a recent week where he had absolutely no pain and was able to be up moving around significantly more than his baseline. Continue to work on tone management, pain control, strengthening, and increased activity tolerance. Physical Therapy Plan Frequency and Duration Frequency of Treatment 2x/Week Plan of Care Start Date 08/13/24 Plan of Care End Date 10/14/24 Therapeutic Interventions Therapeutic Interventions Balance Training,Gait Training ,Home Exercise Program,Joint Mobilizations,Manual Therapy, Neuromuscular Re-education, Patient/Caregiver Education, Self-Care/Home Management,Soft Tissue Mobilization,Taping, Therapeutic Activities, Therapeutic Exercises Modalities Cold Pack/Ice Massage,Electric Stimulation,Hot Packs Next Visit Focus/Plan Next Note Type Treatment Note Next Visit Plan bilateral hip flexibility, core strengthening, gait, functional mobility
--- NOTE | 2024-08-13 13:01 | PT.OPPOC ---
Physical, Occupational & Speech Therapy At [facility] Current Diagnoses Pain in right hip (08/13/24) Spondylosis without myelopathy or radiculopathy, lumbar region (08/13/24) Spinal stenosis, lumbar region without neurogenic claudication (08/13/24) Visit Care Team Role Provider Type Referring Provider Specialty: Address: Phone: Fax: Email: Dayana Ramos PA-C Primary Care Provider Non-Staff Specialty: Medical Address: [address] [place] [address], [id number] Email: [email or web address] Mahnaz Silvestre MD Attending Provider Non-Staff Specialty: Physical Medicine and Rehab Address: [address] [place] [address], [id number] Email: Plan Of Care PT-OP-B Current Condition Start: 06/13/24 17:47 Freq: Status: Active Protocol: Document 06/13/24 11:35 DCW (Rec: 06/14/24 10:55 DCW [id number]) Current Condition History of Current Condition Onset Date Four year history Current Complaints Hip pain, sudden buckling of right leg, Stenosis History of Current Condition Pt is an 83 year old male presenting with a multi-year history of back and right hip pain. Pt notes he believes 2020 was the first time he went to see a doctor about it, reports it was recommended that he have a fusion at that time, but he didn't go through with it. In the mean time, his has been having an increase in right posterior hip pain. Was taking pain pills for a while, but stopped so he could get a better idea of what was flaring it up or calming it down. Increased pain when walking too much, rolling over, and when first getting up in the morning. Was recently seen by a new physician, pt reports that she actually listened to me, and I got actual information about everything! Was diagnosed with severe stenosis , facet arthropathy, and neuropathy. Pt notes he was recently working with a campaign management specialist, they're trying to straighten my spine out, but I decided to stop with them until I did my PT, because if then straighten out my spine, great, I'll have a straight spine, but it won't help this hip pain. Currently uses a 4WW due to complaints of sudden, unexpected right leg buckling. Treatment Goals Patient/Caregiver Goals Pt's main goal is to decrease right posterior hip pain, and to eliminate occurrences of right leg buckling PT-OP-T Assessment and Plan Start: 06/13/24 17:47 Freq: Status: Active Protocol: Document 08/13/24 12:15 DCW (Rec: 08/13/24 13:00 DCW [id number]) Physical Therapy Assessment Impairments Impairments Activity Tolerance,Functional Activities,Functional Mobility ,Pain,Soft Tissue Mobility, Strength,Tone Goals Three Impairment Pt displays general LE weakness and quickly fatigues with testing Long-Term Goal (LTG) Pt to increase bilateral LE strength to 4/5 or better in all tested planes in order to improve stability during gait and decrease instances of right leg buckling LTG Duration Met Two Impairment Pt experiences increased right hip pain walking longer than 10 minutes Metal Smelter Goal (LTG) Pt to report ability to tolerate ambulating 20 minutes or longer with use of a 4WW without increased right hip pain LTG Duration 10/14/24 One Impairment Pt does not have an appropriate home exercise program Short Term Goal (STG) Pt to be independent and compliant with an appropriate HEP STG Duration 09/13/24 Assessment Summary Assessment Pt showing improvement in activity tolerance, strength, and functional mobility. Had a recent week where he had absolutely no pain and was able to be up moving around significantly more than his baseline. Continue to work on tone management, pain control, strengthening, and increased activity tolerance. Physical Therapy Plan Frequency and Duration Frequency of Treatment 2x/Week Plan of Care Start Date 08/13/24 Plan of Care End Date 10/14/24 Therapeutic Interventions Therapeutic Interventions Balance Training,Gait Training ,Home Exercise Program,Joint Mobilizations,Manual Therapy, Neuromuscular Re-education, Patient/Caregiver Education, Self-Care/Home Management,Soft Tissue Mobilization,Taping, Therapeutic Activities, Therapeutic Exercises Modalities Cold Pack/Ice Massage,Electric Stimulation,Hot Packs Next Visit Focus/Plan Next Note Type Treatment Note Next Visit Plan bilateral hip flexibility, core strengthening, gait, functional mobility Plan of Care Dates Plan of Care Start Date 08/13/24 Plan of Care End Date 10/14/24 Electronically Signed by: Billy Selby, PT 08/13/24 1640 If you are in agreement with this Plan of Care, please return a signed and dated copy. I have reviewed this Plan of Care and certify that the skilled therapy services above are required to meet the patient?s needs. Physician Signature Date Printed Name and Credentials Clinical Instructor Signature Printed Name and Credentials
--- NOTE | 2024-08-15 15:13 | PT.OTN ---
Current Diagnoses Pain in right hip (08/15/24) Spondylosis without myelopathy or radiculopathy, lumbar region (08/15/24) Spinal stenosis, lumbar region without neurogenic claudication (08/15/24) Physical Therapy Treatment Note PT-OP-A Visit Information Start: 06/13/24 17:47 Freq: Status: Active Protocol: Document 08/15/24 14:30 DCW (Rec: 08/15/24 15:13 DCW [id number]) Out-Patient Physical Therapy Visit Information Visit Information Visit Type Treatment Note Visit Start Time 14:30 Visit Stop Time 15:15 Visit Number 11 Number of NETWORK SECURITY OFFICER Visits 0 Evaluation Information Evaluation Date 06/13/24 PT-OP-B Current Condition Start: 06/13/24 17:47 Freq: Status: Active Protocol: Document 06/13/24 11:35 DCW (Rec: 06/14/24 10:55 DCW [id number]) Current Condition History of Current Condition Onset Date Four year history Current Complaints Hip pain, sudden buckling of right leg, Stenosis History of Current Condition Pt is an 83 year old male presenting with a multi-year history of back and right hip pain. Pt notes he believes 2020 was the first time he went to see a doctor about it, reports it was recommended that he have a fusion at that time, but he didn't go through with it. In the mean time, his has been having an increase in right posterior hip pain. Was taking pain pills for a while, but stopped so he could get a better idea of what was flaring it up or calming it down. Increased pain when walking too much, rolling over, and when first getting up in the morning. Was recently seen by a new physician, pt reports that she actually listened to me, and I got actual information about everything! Was diagnosed with severe stenosis , facet arthropathy, and neuropathy. Pt notes he was recently working with a senior label specialist, they're trying to straighten my spine out, but I decided to stop with them until I did my PT, because if then straighten out my spine, great, I'll have a straight spine, but it won't help this hip pain. Currently uses a 4WW due to complaints of sudden, unexpected right leg buckling. Treatment Goals Patient/Caregiver Goals Pt's main goal is to decrease right posterior hip pain, and to eliminate occurrences of right leg buckling PT-OP-C Subjective Start: 06/13/24 17:47 Freq: Status: Active Protocol: Document 08/15/24 14:30 DCW (Rec: 08/15/24 15:13 DCW [id number]) OP-PT Subjective Patient Comments Patient Comments Yesterday was a loser. I had to take Tylenol just to put on my clothes. Feeling better today PT-OP-F Manual Assessment Start: 06/13/24 17:47 Freq: Status: Active Protocol: Document 08/13/24 12:15 DCW (Rec: 08/13/24 12:29 DCW [id number]) Manual Assessments Soft Tissue Assessment Soft Tissue Mobility Assessment Moderate tone/hypomobility of bilateral hamstrings, hip flexors, ITB, piriformis, glutes Joint Mobility Assessment Joint Mobility Assessment Moderate-severe lumbar hypomobility PT-OP-L Special Tests Start: 06/13/24 17:47 Freq: Status: Active Protocol: Document 08/13/24 12:15 DCW (Rec: 08/13/24 12:29 DCW [id number]) Special Tests Lumbar Spine Special Tests Straight Leg Raise Test Results Hamstring tightness L 55?, R 52? Slump Test Results Hamstring tightness Hip Special Tests Souleymane Test Results Bilateral hip flexor tightness Piriformis Test Results Bilateral stiffness LEO Test Results Negative PT-OP-M Strength Start: 06/13/24 17:47 Freq: Status: Active Protocol: Document 08/13/24 12:15 DCW (Rec: 08/13/24 12:29 DCW [id number]) Hip Strength Hip Manual Muscle Testing Right Flexion (L2) 4 Good Abduction 4+ Good+ Adduction 4 Good External Rotation 4 Good Internal Rotation 4 Good Left Flexion (L2) 4 Good Abduction 4+ Good+ Adduction 4 Good External Rotation 4 Good Internal Rotation 4 Good Knee Strength Knee Manual Muscle Testing Right Flexion (S2) 4 Good Extension (L3) 4+ Good+ Left Flexion (S2) 4 Good Extension (L3) 4+ Good+ PT-OP-Q Treatments Start: 06/13/24 17:47 Freq: Status: Active Protocol: Document 08/15/24 14:30 DCW (Rec: 08/15/24 15:13 DCW [id number]) Gym Equipment Therapeutic Ball Trunk Flexion Exercise Details Trunk Flexion Ball Size/Color Green - 65 cm Body Position Sitting Comments Walk ball out, fwd, lateral LTR Exercise Details LTR Ball Size/Color Red - 55 cm Body Position Supine Therapeutic Exercises Supine Exercises Piriformis Supine Exercise Name Knee to opposite shoulder - Piriformis stretch HEP Side bilateral Reps/Minutes 60 sec each LE X 2 ITB Stretch Supine Exercise Name ITB Stretch Side bilateral Comments Hooklying Hamstring Stretch Supine Exercise Name Hamstring stretch Side bilateral Reps/Minutes each LE 60 seconds Standing Exercises Hip Extension Standing Exercise Name Hip Extension Side bilateral Resistance Green loop Other Exercises Resisted Ambulation Other Exercise Name Resisted side-stepping Resistance Green loop Manual Therapy Treatment Consent Patient gave verbal consent for manual Yes treatment Soft Tissue Mobilization Lumbar Body Location R Paraspinals, Glutes, Piriformis Mobilization Type Cross-Friction,Rolling, Sustained Pressure Body Position Sidelying Comments bilateral PT-OP-T Assessment and Plan Start: 06/13/24 17:47 Freq: Status: Active Protocol: Document 08/15/24 14:30 DCW (Rec: 08/15/24 15:13 DCW [id number]) Physical Therapy Assessment Impairments Impairments Activity Tolerance,Functional Activities,Functional Mobility ,Pain,Soft Tissue Mobility, Strength,Tone Goals Three Impairment Pt displays general LE weakness and quickly fatigues with testing Correction Goal (LTG) Pt to increase bilateral LE strength to 4/5 or better in all tested planes in order to improve stability during gait and decrease instances of right leg buckling LTG Duration Met Two Impairment Pt experiences increased right hip pain walking longer than 10 minutes Planning Director Goal (LTG) Pt to report ability to tolerate ambulating 20 minutes or longer with use of a 4WW without increased right hip pain LTG Duration 10/14/24 One Impairment Pt does not have an appropriate home exercise program Short Term Goal (STG) Pt to be independent and compliant with an appropriate HEP STG Duration 09/13/24 Assessment Summary Assessment Pt felt very good with new activities today. Trunk flexion with ball walk-out felt great. Pt very motivated to participate in all activities. Continue to focus on activity tolerance, balance training, core/back/LE strengthening. Physical Therapy Plan Frequency and Duration Frequency of Treatment 2x/Week Plan of Care Start Date 08/13/24 Plan of Care End Date 10/14/24 Therapeutic Interventions Therapeutic Interventions Balance Training,Gait Training ,Home Exercise Program,Joint Mobilizations,Manual Therapy, Neuromuscular Re-education, Patient/Caregiver Education, Self-Care/Home Management,Soft Tissue Mobilization,Taping, Therapeutic Activities, Therapeutic Exercises Modalities Cold Pack/Ice Massage,Electric Stimulation,Hot Packs Next Visit Focus/Plan Next Note Type Treatment Note Next Visit Plan bilateral hip flexibility, core strengthening, gait, functional mobility
--- NOTE | 2024-08-20 15:17 | PT.OTN ---
Current Diagnoses Pain in right hip (08/20/24) Spondylosis without myelopathy or radiculopathy, lumbar region (08/20/24) Spinal stenosis, lumbar region without neurogenic claudication (08/20/24) Physical Therapy Treatment Note PT-OP-A Visit Information Start: 06/13/24 17:47 Freq: Status: Active Protocol: Document 08/20/24 14:30 DCW (Rec: 08/20/24 15:17 DCW [id number]) Out-Patient Physical Therapy Visit Information Visit Information Visit Type Treatment Note Visit Start Time 14:30 Visit Stop Time 15:15 Visit Number 11 Number of AUTOMOBILE REPAIR SERVICE ESTIMATOR Visits 0 Evaluation Information Evaluation Date 06/13/24 PT-OP-B Current Condition Start: 06/13/24 17:47 Freq: Status: Active Protocol: Document 06/13/24 11:35 DCW (Rec: 06/14/24 10:55 DCW [id number]) Current Condition History of Current Condition Onset Date Four year history Current Complaints Hip pain, sudden buckling of right leg, Stenosis History of Current Condition Pt is an 83 year old male presenting with a multi-year history of back and right hip pain. Pt notes he believes 2020 was the first time he went to see a doctor about it, reports it was recommended that he have a fusion at that time, but he didn't go through with it. In the mean time, his has been having an increase in right posterior hip pain. Was taking pain pills for a while, but stopped so he could get a better idea of what was flaring it up or calming it down. Increased pain when walking too much, rolling over, and when first getting up in the morning. Was recently seen by a new physician, pt reports that she actually listened to me, and I got actual information about everything! Was diagnosed with severe stenosis , facet arthropathy, and neuropathy. Pt notes he was recently working with a application packaging specialist, they're trying to straighten my spine out, but I decided to stop with them until I did my PT, because if then straighten out my spine, great, I'll have a straight spine, but it won't help this hip pain. Currently uses a 4WW due to complaints of sudden, unexpected right leg buckling. Treatment Goals Patient/Caregiver Goals Pt's main goal is to decrease right posterior hip pain, and to eliminate occurrences of right leg buckling PT-OP-C Subjective Start: 06/13/24 17:47 Freq: Status: Active Protocol: Document 08/20/24 14:30 DCW (Rec: 08/20/24 15:17 DCW [id number]) OP-PT Subjective Patient Comments Patient Comments Pt notes he is pretty tired today, his left posterior hip is bothering him today PT-OP-F Manual Assessment Start: 06/13/24 17:47 Freq: Status: Active Protocol: Document 08/13/24 12:15 DCW (Rec: 08/13/24 12:29 DCW [id number]) Manual Assessments Soft Tissue Assessment Soft Tissue Mobility Assessment Moderate tone/hypomobility of bilateral hamstrings, hip flexors, ITB, piriformis, glutes Joint Mobility Assessment Joint Mobility Assessment Moderate-severe lumbar hypomobility PT-OP-L Special Tests Start: 06/13/24 17:47 Freq: Status: Active Protocol: Document 08/13/24 12:15 DCW (Rec: 08/13/24 12:29 DCW [id number]) Special Tests Lumbar Spine Special Tests Straight Leg Raise Test Results Hamstring tightness L 55?, R 52? Slump Test Results Hamstring tightness Hip Special Tests Souleymane Test Results Bilateral hip flexor tightness Piriformis Test Results Bilateral stiffness LEO Test Results Negative PT-OP-M Strength Start: 06/13/24 17:47 Freq: Status: Active Protocol: Document 08/13/24 12:15 DCW (Rec: 08/13/24 12:29 DCW [id number]) Hip Strength Hip Manual Muscle Testing Right Flexion (L2) 4 Good Abduction 4+ Good+ Adduction 4 Good External Rotation 4 Good Internal Rotation 4 Good Left Flexion (L2) 4 Good Abduction 4+ Good+ Adduction 4 Good External Rotation 4 Good Internal Rotation 4 Good Knee Strength Knee Manual Muscle Testing Right Flexion (S2) 4 Good Extension (L3) 4+ Good+ Left Flexion (S2) 4 Good Extension (L3) 4+ Good+ PT-OP-Q Treatments Start: 06/13/24 17:47 Freq: Status: Active Protocol: Document 08/20/24 14:30 DCW (Rec: 08/20/24 15:17 DCW [id number]) Gym Equipment Therapeutic Ball Trunk Flexion Exercise Details Trunk Flexion Ball Size/Color Red - 75 cm Body Position Sitting Comments Walk ball out, fwd, lateral Hip Flexion Exercise Details Resisted hip/knee flexion /c feet on ball Ball Size/Color Red - 55 cm Lv 3 T-band Body Position Supine LTR Exercise Details LTR Ball Size/Color Red - 55 cm Body Position Supine Therapeutic Exercises Supine Exercises Piriformis Supine Exercise Name Knee to opposite shoulder - Piriformis stretch HEP Side bilateral Reps/Minutes 60 sec each LE X 2 ITB Stretch Supine Exercise Name ITB Stretch Side bilateral Comments Hooklying Hamstring Stretch Supine Exercise Name Hamstring stretch Side bilateral Reps/Minutes each LE 60 seconds Standing Exercises standing calf stretches Standing Exercise Name Gastroc stretch Side bilateral Equipment Used GEM Hip Extension Standing Exercise Name Hip Extension Side bilateral Resistance Green loop Other Exercises Resisted Ambulation Other Exercise Name Resisted side-stepping Resistance Green loop PT-OP-T Assessment and Plan Start: 06/13/24 17:47 Freq: Status: Active Protocol: Document 08/20/24 14:30 DCW (Rec: 08/20/24 15:17 DCW [id number]) Physical Therapy Assessment Impairments Impairments Activity Tolerance,Functional Activities,Functional Mobility ,Pain,Soft Tissue Mobility, Strength,Tone Goals Three Impairment Pt displays general LE weakness and quickly fatigues with testing Roll Inspector Goal (LTG) Pt to increase bilateral LE strength to 4/5 or better in all tested planes in order to improve stability during gait and decrease instances of right leg buckling LTG Duration Met Two Impairment Pt experiences increased right hip pain walking longer than 10 minutes Roll Inspector Goal (LTG) Pt to report ability to tolerate ambulating 20 minutes or longer with use of a 4WW without increased right hip pain LTG Duration 10/14/24 One Impairment Pt does not have an appropriate home exercise program Short Term Goal (STG) Pt to be independent and compliant with an appropriate HEP STG Duration 09/13/24 Assessment Summary Assessment Pt struggling more today with increased left hip pain, but still able to tolerate all activities. Did require occasional rest breaks. Physical Therapy Plan Frequency and Duration Frequency of Treatment 2x/Week Plan of Care Start Date 08/13/24 Plan of Care End Date 10/14/24 Therapeutic Interventions Therapeutic Interventions Balance Training,Gait Training ,Home Exercise Program,Joint Mobilizations,Manual Therapy, Neuromuscular Re-education, Patient/Caregiver Education, Self-Care/Home Management,Soft Tissue Mobilization,Taping, Therapeutic Activities, Therapeutic Exercises Modalities Cold Pack/Ice Massage,Electric Stimulation,Hot Packs Next Visit Focus/Plan Next Note Type Treatment Note Next Visit Plan bilateral hip flexibility, core strengthening, gait, functional mobility
--- NOTE | 2024-08-22 15:54 | PT.OTN ---
Current Diagnoses Pain in right hip (08/22/24) Spondylosis without myelopathy or radiculopathy, lumbar region (08/22/24) Spinal stenosis, lumbar region without neurogenic claudication (08/22/24) Physical Therapy Treatment Note PT-OP-A Visit Information Start: 06/13/24 17:47 Freq: Status: Active Protocol: Document 08/22/24 15:16 DCW (Rec: 08/22/24 15:53 DCW [id number]) Out-Patient Physical Therapy Visit Information Visit Information Visit Type Treatment Note Visit Start Time 15:16 Visit Stop Time 16:00 Visit Number 12 Number of BILINGUAL SPEECH LANGUAGE PATHOLOGIST Visits 0 Evaluation Information Evaluation Date 06/13/24 PT-OP-B Current Condition Start: 06/13/24 17:47 Freq: Status: Active Protocol: Document 06/13/24 11:35 DCW (Rec: 06/14/24 10:55 DCW [id number]) Current Condition History of Current Condition Onset Date Four year history Current Complaints Hip pain, sudden buckling of right leg, Stenosis History of Current Condition Pt is an 83 year old male presenting with a multi-year history of back and right hip pain. Pt notes he believes 2020 was the first time he went to see a doctor about it, reports it was recommended that he have a fusion at that time, but he didn't go through with it. In the mean time, his has been having an increase in right posterior hip pain. Was taking pain pills for a while, but stopped so he could get a better idea of what was flaring it up or calming it down. Increased pain when walking too much, rolling over, and when first getting up in the morning. Was recently seen by a new physician, pt reports that she actually listened to me, and I got actual information about everything! Was diagnosed with severe stenosis , facet arthropathy, and neuropathy. Pt notes he was recently working with a assistive technology specialist, they're trying to straighten my spine out, but I decided to stop with them until I did my PT, because if then straighten out my spine, great, I'll have a straight spine, but it won't help this hip pain. Currently uses a 4WW due to complaints of sudden, unexpected right leg buckling. Treatment Goals Patient/Caregiver Goals Pt's main goal is to decrease right posterior hip pain, and to eliminate occurrences of right leg buckling PT-OP-C Subjective Start: 06/13/24 17:47 Freq: Status: Active Protocol: Document 08/22/24 15:16 DCW (Rec: 08/22/24 15:53 DCW [id number]) OP-PT Subjective Patient Comments Patient Comments Pt notes his left side is back to feeling good, but hi right hip pain has returned PT-OP-F Manual Assessment Start: 06/13/24 17:47 Freq: Status: Active Protocol: Document 08/13/24 12:15 DCW (Rec: 08/13/24 12:29 DCW [id number]) Manual Assessments Soft Tissue Assessment Soft Tissue Mobility Assessment Moderate tone/hypomobility of bilateral hamstrings, hip flexors, ITB, piriformis, glutes Joint Mobility Assessment Joint Mobility Assessment Moderate-severe lumbar hypomobility PT-OP-L Special Tests Start: 06/13/24 17:47 Freq: Status: Active Protocol: Document 08/13/24 12:15 DCW (Rec: 08/13/24 12:29 DCW [id number]) Special Tests Lumbar Spine Special Tests Straight Leg Raise Test Results Hamstring tightness L 55?, R 52? Slump Test Results Hamstring tightness Hip Special Tests Souleymane Test Results Bilateral hip flexor tightness Piriformis Test Results Bilateral stiffness LEO Test Results Negative PT-OP-M Strength Start: 06/13/24 17:47 Freq: Status: Active Protocol: Document 08/13/24 12:15 DCW (Rec: 08/13/24 12:29 DCW [id number]) Hip Strength Hip Manual Muscle Testing Right Flexion (L2) 4 Good Abduction 4+ Good+ Adduction 4 Good External Rotation 4 Good Internal Rotation 4 Good Left Flexion (L2) 4 Good Abduction 4+ Good+ Adduction 4 Good External Rotation 4 Good Internal Rotation 4 Good Knee Strength Knee Manual Muscle Testing Right Flexion (S2) 4 Good Extension (L3) 4+ Good+ Left Flexion (S2) 4 Good Extension (L3) 4+ Good+ PT-OP-Q Treatments Start: 06/13/24 17:47 Freq: Status: Active Protocol: Document 08/22/24 15:16 DCW (Rec: 08/22/24 15:53 DCW [id number]) Gym Equipment Shuttle Recovery Unilateral Squats Resistance 25# Shuttle Recovery Platform Stable Bilateral Squats Resistance 50# Shuttle Recovery Platform Stable Therapeutic Ball Trunk Flexion Exercise Details Trunk Flexion Ball Size/Color Red - 75 cm Body Position Sitting Comments Walk ball out, fwd, lateral Hip Flexion Exercise Details Resisted hip/knee flexion /c feet on ball Ball Size/Color Red - 55 cm Lv 3 T-band Body Position Supine LTR Exercise Details LTR Ball Size/Color Red - 55 cm Body Position Supine Therapeutic Exercises Supine Exercises Bridging Supine Exercise Name Bridging /c TrA bracing Piriformis Supine Exercise Name Knee to opposite shoulder - Piriformis stretch HEP Side bilateral Reps/Minutes 60 sec each LE X 2 ITB Stretch Supine Exercise Name ITB Stretch Side bilateral Comments Hooklying Hamstring Stretch Supine Exercise Name Hamstring stretch Side bilateral Reps/Minutes each LE 60 seconds PT-OP-T Assessment and Plan Start: 06/13/24 17:47 Freq: Status: Active Protocol: Document 08/22/24 15:16 DCW (Rec: 08/22/24 15:53 DCW [id number]) Physical Therapy Assessment Impairments Impairments Activity Tolerance,Functional Activities,Functional Mobility ,Pain,Soft Tissue Mobility, Strength,Tone Goals Three Impairment Pt displays general LE weakness and quickly fatigues with testing Timber Framer Goal (LTG) Pt to increase bilateral LE strength to 4/5 or better in all tested planes in order to improve stability during gait and decrease instances of right leg buckling LTG Duration Met Two Impairment Pt experiences increased right hip pain walking longer than 10 minutes Timber Framer Goal (LTG) Pt to report ability to tolerate ambulating 20 minutes or longer with use of a 4WW without increased right hip pain LTG Duration 10/14/24 One Impairment Pt does not have an appropriate home exercise program Short Term Goal (STG) Pt to be independent and compliant with an appropriate HEP STG Duration 09/13/24 Assessment Summary Assessment Pt feeling better today, tolerated all activities well. Pt puts forth very good effort, does continue to fatigue with activity. Physical Therapy Plan Frequency and Duration Frequency of Treatment 2x/Week Plan of Care Start Date 08/13/24 Plan of Care End Date 10/14/24 Therapeutic Interventions Therapeutic Interventions Balance Training,Gait Training ,Home Exercise Program,Joint Mobilizations,Manual Therapy, Neuromuscular Re-education, Patient/Caregiver Education, Self-Care/Home Management,Soft Tissue Mobilization,Taping, Therapeutic Activities, Therapeutic Exercises Modalities Cold Pack/Ice Massage,Electric Stimulation,Hot Packs Next Visit Focus/Plan Next Note Type Treatment Note Next Visit Plan bilateral hip flexibility, core strengthening, gait, functional mobility
--- NOTE | 2024-10-01 16:21 | PT.OTN ---
Current Diagnoses Pain in right hip (10/01/24) Spondylosis without myelopathy or radiculopathy, lumbar region (10/01/24) Spinal stenosis, lumbar region without neurogenic claudication (10/01/24) Physical Therapy Treatment Note PT-OP-A Visit Information Start: 06/13/24 17:47 Freq: Status: Active Protocol: Document 10/01/24 12:33 AB (Rec: 10/01/24 16:20 AB [id number]) Out-Patient Physical Therapy Visit Information Visit Information Visit Type Treatment Note Visit Start Time 13:51 Visit Stop Time 14:34 Visit Number 13 Number of DRAMATIC TEACHER Visits 1 Evaluation Information Evaluation Date 06/13/24 PT-OP-B Current Condition Start: 06/13/24 17:47 Freq: Status: Active Protocol: Document 06/13/24 11:35 DCW (Rec: 06/14/24 10:55 DCW [id number]) Current Condition History of Current Condition Onset Date Four year history Current Complaints Hip pain, sudden buckling of right leg, Stenosis History of Current Condition Pt is an 83 year old male presenting with a multi-year history of back and right hip pain. Pt notes he believes 2020 was the first time he went to see a doctor about it, reports it was recommended that he have a fusion at that time, but he didn't go through with it. In the mean time, his has been having an increase in right posterior hip pain. Was taking pain pills for a while, but stopped so he could get a better idea of what was flaring it up or calming it down. Increased pain when walking too much, rolling over, and when first getting up in the morning. Was recently seen by a new physician, pt reports that she actually listened to me, and I got actual information about everything! Was diagnosed with severe stenosis , facet arthropathy, and neuropathy. Pt notes he was recently working with a retail experience specialist, they're trying to straighten my spine out, but I decided to stop with them until I did my PT, because if then straighten out my spine, great, I'll have a straight spine, but it won't help this hip pain. Currently uses a 4WW due to complaints of sudden, unexpected right leg buckling. Treatment Goals Patient/Caregiver Goals Pt's main goal is to decrease right posterior hip pain, and to eliminate occurrences of right leg buckling PT-OP-C Subjective Start: 06/13/24 17:47 Freq: Status: Active Protocol: Document 10/01/24 12:33 AB (Rec: 10/01/24 16:20 AB [id number]) OP-PT Subjective Patient Comments Patient Comments Tor reports he is having an MRI at 5 PM today. Patient initiates ambulation resting forearms on 4 wheeled walker, comments he is not doing well today. PT-OP-F Manual Assessment Start: 06/13/24 17:47 Freq: Status: Active Protocol: Document 08/13/24 12:15 DCW (Rec: 08/13/24 12:29 DCW [id number]) Manual Assessments Soft Tissue Assessment Soft Tissue Mobility Assessment Moderate tone/hypomobility of bilateral hamstrings, hip flexors, ITB, piriformis, glutes Joint Mobility Assessment Joint Mobility Assessment Moderate-severe lumbar hypomobility PT-OP-L Special Tests Start: 06/13/24 17:47 Freq: Status: Active Protocol: Document 08/13/24 12:15 DCW (Rec: 08/13/24 12:29 DCW [id number]) Special Tests Lumbar Spine Special Tests Straight Leg Raise Test Results Hamstring tightness L 55?, R 52? Slump Test Results Hamstring tightness Hip Special Tests Souleymane Test Results Bilateral hip flexor tightness Piriformis Test Results Bilateral stiffness LEO Test Results Negative PT-OP-M Strength Start: 06/13/24 17:47 Freq: Status: Active Protocol: Document 08/13/24 12:15 DCW (Rec: 08/13/24 12:29 DCW [id number]) Hip Strength Hip Manual Muscle Testing Right Flexion (L2) 4 Good Abduction 4+ Good+ Adduction 4 Good External Rotation 4 Good Internal Rotation 4 Good Left Flexion (L2) 4 Good Abduction 4+ Good+ Adduction 4 Good External Rotation 4 Good Internal Rotation 4 Good Knee Strength Knee Manual Muscle Testing Right Flexion (S2) 4 Good Extension (L3) 4+ Good+ Left Flexion (S2) 4 Good Extension (L3) 4+ Good+ PT-OP-Q Treatments Start: 06/13/24 17:47 Freq: Status: Active Protocol: Document 10/01/24 12:33 AB (Rec: 10/01/24 16:20 AB [id number]) Gym Equipment Shuttle Recovery Bilateral Squats Resistance 50# Shuttle Recovery Platform Stable Reps/Time X10 Therapeutic Exercises Supine Exercises Figure 4 Reps/Minutes 60 sec each LE X 1 Comments Verbal and tactile cues/assist to position LE modified Souleymane stretch Supine Exercise Name one LE off mat opp knee to chest with towel Side bilateral Equipment Used x 1 each LE Reps/Minutes 1 minute Bridging Supine Exercise Name Bridging /c TrA bracing Reps/Minutes X10 Comments verbal cues to push into heels Piriformis Supine Exercise Name Knee to opposite shoulder - Piriformis stretch HEP Side bilateral Reps/Minutes 60 sec each LE X 1 Manual Therapy Treatment Soft Tissue Mobilization Lumbar Body Location B Paraspinals, Glutes, Piriformis Mobilization Type Cross-Friction,Rolling, Sustained Pressure Intensity/Depth Moderate Body Position Sidelying Comments bilateral Manual Techniques MET for R AI left PI Type also pubic shot gun Reps/Duration 6 X 6 sec each no dowel right LE into mat L into therapist's hand PT-OP-T Assessment and Plan Start: 06/13/24 17:47 Freq: Status: Active Protocol: Document 10/01/24 12:33 AB (Rec: 10/01/24 16:20 AB [id number]) Physical Therapy Assessment Goals Three Impairment Pt displays general LE weakness and quickly fatigues with testing Manager Plan Goal (LTG) Pt to increase bilateral LE strength to 4/5 or better in all tested planes in order to improve stability during gait and decrease instances of right leg buckling LTG Duration Met Two Impairment Pt experiences increased right hip pain walking longer than 10 minutes Manager Plan Goal (LTG) Pt to report ability to tolerate ambulating 20 minutes or longer with use of a 4WW without increased right hip pain LTG Duration 10/14/24 One Impairment Pt does not have an appropriate home exercise program Short Term Goal (STG) Pt to be independent and compliant with an appropriate HEP STG Duration 09/13/24 Assessment Summary Assessment Tor rates left hip pain 2/10 ambulating out of session with 4 wheeled walker. Physical Therapy Plan Frequency and Duration Frequency of Treatment 2x/Week Plan of Care Start Date 08/13/24 Plan of Care End Date 10/14/24 Next Visit Focus/Plan Next Note Type Treatment Note Next Visit Plan bilateral hip flexibility, core strengthening, gait, functional mobility
--- NOTE | 2024-10-03 14:30 | PT.OTN ---
Current Diagnoses Pain in right hip (10/03/24) Spondylosis without myelopathy or radiculopathy, lumbar region (10/03/24) Spinal stenosis, lumbar region without neurogenic claudication (10/03/24) Physical Therapy Treatment Note PT-OP-A Visit Information Start: 06/13/24 17:47 Freq: Status: Active Protocol: Document 10/03/24 13:46 DCW (Rec: 10/03/24 14:30 DCW [id number]) Out-Patient Physical Therapy Visit Information Visit Information Visit Type Discharge Summary Visit Start Time 13:46 Visit Stop Time 14:30 Visit Number 14 Number of MECHANICAL SYSTEMS CONTROL ENGINEER Visits 0 Evaluation Information Evaluation Date 06/13/24 PT-OP-B Current Condition Start: 06/13/24 17:47 Freq: Status: Active Protocol: Document 06/13/24 11:35 DCW (Rec: 06/14/24 10:55 DCW [id number]) Current Condition History of Current Condition Onset Date Four year history Current Complaints Hip pain, sudden buckling of right leg, Stenosis History of Current Condition Pt is an 83 year old male presenting with a multi-year history of back and right hip pain. Pt notes he believes 2020 was the first time he went to see a doctor about it, reports it was recommended that he have a fusion at that time, but he didn't go through with it. In the mean time, his has been having an increase in right posterior hip pain. Was taking pain pills for a while, but stopped so he could get a better idea of what was flaring it up or calming it down. Increased pain when walking too much, rolling over, and when first getting up in the morning. Was recently seen by a new physician, pt reports that she actually listened to me, and I got actual information about everything! Was diagnosed with severe stenosis , facet arthropathy, and neuropathy. Pt notes he was recently working with a network operations specialist, they're trying to straighten my spine out, but I decided to stop with them until I did my PT, because if then straighten out my spine, great, I'll have a straight spine, but it won't help this hip pain. Currently uses a 4WW due to complaints of sudden, unexpected right leg buckling. Treatment Goals Patient/Caregiver Goals Pt's main goal is to decrease right posterior hip pain, and to eliminate occurrences of right leg buckling PT-OP-C Subjective Start: 06/13/24 17:47 Freq: Status: Active Protocol: Document 10/03/24 13:46 DCW (Rec: 10/03/24 14:30 DCW [id number]) OP-PT Subjective Patient Comments Patient Comments Pt reports he got his MRI, now has a follow-up with his PCP to discuss the results. Admits he feels like he has been worsening the past few weeks. PT-OP-F Manual Assessment Start: 06/13/24 17:47 Freq: Status: Active Protocol: Document 08/13/24 12:15 DCW (Rec: 08/13/24 12:29 DCW [id number]) Manual Assessments Soft Tissue Assessment Soft Tissue Mobility Assessment Moderate tone/hypomobility of bilateral hamstrings, hip flexors, ITB, piriformis, glutes Joint Mobility Assessment Joint Mobility Assessment Moderate-severe lumbar hypomobility PT-OP-L Special Tests Start: 06/13/24 17:47 Freq: Status: Active Protocol: Document 08/13/24 12:15 DCW (Rec: 08/13/24 12:29 DCW [id number]) Special Tests Lumbar Spine Special Tests Straight Leg Raise Test Results Hamstring tightness L 55?, R 52? Slump Test Results Hamstring tightness Hip Special Tests Souleymane Test Results Bilateral hip flexor tightness Piriformis Test Results Bilateral stiffness LEO Test Results Negative PT-OP-M Strength Start: 06/13/24 17:47 Freq: Status: Active Protocol: Document 08/13/24 12:15 DCW (Rec: 08/13/24 12:29 DCW [id number]) Hip Strength Hip Manual Muscle Testing Right Flexion (L2) 4 Good Abduction 4+ Good+ Adduction 4 Good External Rotation 4 Good Internal Rotation 4 Good Left Flexion (L2) 4 Good Abduction 4+ Good+ Adduction 4 Good External Rotation 4 Good Internal Rotation 4 Good Knee Strength Knee Manual Muscle Testing Right Flexion (S2) 4 Good Extension (L3) 4+ Good+ Left Flexion (S2) 4 Good Extension (L3) 4+ Good+ PT-OP-Q Treatments Start: 06/13/24 17:47 Freq: Status: Active Protocol: Document 10/03/24 13:46 DCW (Rec: 10/03/24 14:30 DCW [id number]) Gym Equipment Therapeutic Ball Trunk Flexion Exercise Details Trunk Flexion Ball Size/Color Red - 75 cm Body Position Sitting Comments Walk ball out, fwd, lateral Hip Flexion Exercise Details Resisted hip/knee flexion /c feet on ball Ball Size/Color Red - 55 cm Lv 3 T-band Body Position Supine LTR Exercise Details LTR Ball Size/Color Red - 55 cm Body Position Supine Manual Therapy Treatment Soft Tissue Mobilization Lumbar Body Location B Paraspinals, Glutes, Piriformis Mobilization Type Cross-Friction,Rolling, Sustained Pressure Intensity/Depth Moderate Body Position Sidelying Comments bilateral PT-OP-T Assessment and Plan Start: 06/13/24 17:47 Freq: Status: Active Protocol: Document 10/03/24 13:46 DCW (Rec: 10/03/24 14:30 DCW [id number]) Physical Therapy Assessment Impairments Impairments Activity Tolerance,Functional Activities,Functional Mobility ,Pain,Soft Tissue Mobility, Strength,Tone Goals Three Impairment Pt displays general LE weakness and quickly fatigues with testing Longterm Goal (LTG) Pt to increase bilateral LE strength to 4/5 or better in all tested planes in order to improve stability during gait and decrease instances of right leg buckling LTG Duration Met Two Impairment Pt experiences increased right hip pain walking longer than 10 minutes Longterm Goal (LTG) Pt to report ability to tolerate ambulating 20 minutes or longer with use of a 4WW without increased right hip pain LTG Duration 10/14/24 One Impairment Pt does not have an appropriate home exercise program Short Term Goal (STG) Pt to be independent and compliant with an appropriate HEP STG Duration 09/13/24 Assessment Summary Assessment Tolerated very well, feeling much better following appointment. Pt feels comfortable with HEP, in agreement to discharge from skilled PT for now until he is able to get into a network operations specialist to discuss his MRI results and make future plans. Physical Therapy Plan Frequency and Duration Frequency of Treatment 2x/Week Plan of Care Start Date 08/13/24 Plan of Care End Date 10/14/24 Therapeutic Interventions Therapeutic Interventions Balance Training,Gait Training ,Home Exercise Program,Joint Mobilizations,Manual Therapy, Neuromuscular Re-education, Patient/Caregiver Education, Self-Care/Home Management,Soft Tissue Mobilization,Taping, Therapeutic Activities, Therapeutic Exercises Modalities Cold Pack/Ice Massage,Electric Stimulation,Hot Packs Discharge Physical Therapy Discharge Reasons Plateau in Progress Next Visit Focus/Plan Next Note Type Discharge Summary
== END 2024-10-04 15:06 | disposition home or self-care (01) ==
LOC: PHYS 13:45
PROVIDERS: PCP Physician Assistant; Visit Provider Physical Medicine & Rehabilitation
DX: M47.816 Spondylosis without myelopathy or radiculopathy, lumbar region (principal); M48.061 Spinal stenosis, lumbar region without neurogenic claudication; M25.551 Pain in right hip
CPT/HCPCS: 97110; 97140; 97162

== ENCOUNTER → 2024-10-24 14:43 | Outpatient (CLI) | payer OTHER, SELFPAY ==
[2024-10-24 16:58] LABS: Add Manual Diff / Slide Review NO; Basophils Absolute Auto 100 /uL (0-100); Basophils Percent Auto 0.8 % (0-2); Eosinophils Absolute Auto 400 /uL (0-450); Eosinophils Percent Auto 4.9 % (2-4); Hematocrit 42.4 % (41-53); Hemoglobin 14.8 g/dL (13.5-17.5); Lymphocytes Absolute Auto 1800 /uL (1100-4500); Lymphocytes Percent Auto 24.2 % (25-40); Mean Corpuscular HGB Conc 34.8 % (30-36); Mean Corpuscular Hemoglobin 32.3 PG (26-34); Mean Corpuscular Volume 92.7 fL (80-100); Monocytes Absolute Auto 600 /uL (0-900); Monocytes Percent Auto 7.8 % (3-14); Neutrophils Absolute Auto 4600 /uL (1500-7000); Neutrophils Percent Auto 62.3 % (50-75); Platelet Count 239 X10^3/uL (150-400); Red Blood Cell Count 4.57 X10^6/uL (4.5-5.9); Red Cell Distribution Width 13.7 % (11.6-14.8); White Blood Cell Count 7.4 X10^3/uL (4.5-11.0)
[2024-10-24 17:15] LABS: Hemoglobin A1C% w Est Avg Glu 5.6 % (4.0-6.0)
[2024-10-24 17:32] LABS: Alanine Aminotransferase 28 IU/L (<50); Albumin 4.4 g/dL (3.5-5.0); Albumin Globulin Ratio 1.3 (1.0-2.8); Alkaline Phosphatase 66 U/L (38-126); Aspartate Aminotransferase 34 IU/L (17-59); BUN Creatinine Ratio 14.9 (6-22); Bilirubin Total 0.6 mg/dL (0.2-1.3); Blood Urea Nitrogen 18 mg/dL (9-20); Calcium 9.6 mg/dL (8.4-10.2); Carbon Dioxide 22 mmol/L (22-32); Chloride 108 mmol/L (98-107); Cholesterol 159 mg/dL (140-199); Estimated Glomerular Filt Rate 58 mL/min (>60); Globulin 3.5 g/dL (1.7-4.1); Glucose 111 mg/dL (80-110); HDL Cholesterol 42 mg/dL (40-60); HEMOLYSIS < 15 (0-50); LDL Cholesterol Calculated 75 mg/dL (<100); Sodium 140 mmol/L (137-145); Total Protein 7.9 g/dL (6.3-8.2); Triglycerides 208 mg/dL (35-150)
== END ==
PROVIDERS: PCP Family Medicine; Referring Provider Family Medicine; Visit Provider Family Medicine
DX: Z01.818 Encounter for other preprocedural examination (principal); I10 Essential (primary) hypertension; Z68.38 Body mass index [BMI] 38.0-38.9, adult; G62.9 Polyneuropathy, unspecified; M48.061 Spinal stenosis, lumbar region without neurogenic claudication
CPT/HCPCS: 36415; 80053; 80061; 83036; 85025

== ENCOUNTER → 2024-11-21 07:57 | Outpatient (CLI) | payer OTHER, SELFPAY ==
--- NOTE | 2024-11-21 07:57 | DI.ECHO.S_ITS ---
[place] : : [address] : [place] : : [id number] : : Phone: [phone] Echocardiogram Report + + :Name: LUCIA MEDINA Study Date: 11/21/2024 Height: 67 in : :[facility] ReadingLocation: Weight: 245 lb : : Gender: Male BSA: 2.2 m2 : :: 1940 Age: 84 yrs BP: 119/75 mmHg: :Reason For Study: PRE-OP CLEARANCE : :Ordering Physician: INA, : :PAUL Performed By: Paula Shelby : :Referring: PAUL BUCKLEY : + + Interpretation Summary 1) Normal left ventricular thickness, size, wall motion, and systolic function (EF 55-60%). 2) Normal right ventricular size and function. 3) No significant valvular abnormalities. 4) No prior Echo available for comparison. Procedure: A two-dimensional transthoracic echocardiogram with color flow and Doppler was performed. The study quality was technically difficult. There is no prior echocardiogram noted for this patient. The patient was in sinus rhythm with heart rates between 59-70 bpm during the exam. Left Ventricle: The left ventricle is normal in size and wall thickness. The ejection fraction is estimated to be 55-60%. Left ventricular systolic function appears normal without focal wall motion abnormalities. Diastolic function could not be accurately assessed due to contradictory data. Right Ventricle: The right ventricle is normal in size and function. Atria: The left atrial size is normal. Right atrial size is normal. There is no Doppler evidence for an interatrial shunt. Mitral Valve: The mitral valve leaflets appear to open well. There is mild mitral annular calcification. There is trace mitral regurgitation. Aortic Valve: The aortic valve is trileaflet. The aortic valve is mildly calcified. There is no aortic valve stenosis. No aortic regurgitation is present. Tricuspid Valve: The tricuspid valve leaflets are thin and pliable. No tricuspid regurgitation. Pulmonary artery pressures cannot be estimated because of the lack of a measurable TR jet velocity. Pulmonic Valve: The pulmonic valve is not well visualized. There is no pulmonic valvular regurgitation. Great Vessels: The aortic root is normal size. The dimensions of the ascending aorta are normal. The IVC is of normal diameter and collapses greater than 50% with a sniff. This suggests a low right atrial pressure of 3 mm Hg. Pericardium/ Pleura There is no pericardial effusion. There is no pleural effusion. MMode/2D Measurements & Calculations LVIDd: 4.1 cm LVOT diam: 2.2 cm LVIDs: 2.6 cm Ao root diam: 3.6 cm FS: 36.6 % asc Aorta Diam: 3.6 cm IVSd: 1.1 cm Ao Arch Diam (Prox Trans): 3.1 cm LVPWd: 0.92 cm LV ramos. diameter/BSA (cm/m^2): 1.8 LV sys. diameter/BSA (cm/m^2): 1.2 LA A2 area: 18.3 cm2 RA long axis: 4.6 cm LA A4 area: 16.3 cm2 RA area: 10.8 cm2 LA length (vol): 5.0 cm RA vol: 21.3 ml LA vol: 50.8 ml RA : 9.7 ml/m2 LA vol index: 23.1 ml/m2 IVC diam: 0.91 cm RVD1 (basal): 2.6 cm RVD2 (mid): 2.4 cm TAPSE: 2.0 cm Doppler Measurements & Calculations Ao V2 max: 133.9 cm/sec LVOT Max Stephan: 94.9 cm/sec Ao V2 mean: 90.0 cm/sec LV V1 max P.6 mmHg Ao max P.2 mmHg LV V1 VTI: 19.1 cm Ao mean P.6 mmHg KATIE(I,D): 2.8 cm2 Ao V2 VTI: 26.1 cm KATIE(V,D): 2.7 cm2 sev ratio: 0.73 KATIE indexed to BSA (cm^2/m^2): 1.3 MV E max stephan: 65.7 cm/sec PA V2 max: 72.0 cm/sec MV A max stephan: 72.3 cm/sec PA V2 mean: 49.6 cm/sec MV E/A: 0.91 PA mean P.1 mmHg Med Peak E' Stephan: 4.5 cm/sec PA pr(Accel): 50.7 mmHg E/E' med: 14.7 Lat Peak E' Stephan: 4.8 cm/sec E/E' lat: 13.7 E/e' average: 14.2 MV dec time: 0.30 sec SV(LVKIZZY): 74.0 ml Reading Physician:12:46 PM
== END ==
PROVIDERS: PCP Family Medicine; Referring Provider Family Medicine; Visit Provider Family Medicine
DX: I10 Essential (primary) hypertension (principal); R79.89 Other specified abnormal findings of blood chemistry; Z68.38 Body mass index [BMI] 38.0-38.9, adult; Z01.818 Encounter for other preprocedural examination
CPT/HCPCS: 93306

== ENCOUNTER → 2024-11-28 11:18 | Outpatient (CLI) | payer OTHER, SELFPAY ==
--- NOTE | 2024-11-28 11:19 | DI.CT.S_ITS ---
PROCEDURE: CT LUMBAR SPINE WO CON INDICATIONS: SPINAL STENOSIS TECHNIQUE: Noncontrast 0.8 mm thick sections acquired from the T12 level to the sacrum. Sagittal and coronal reformats were constructed. For radiation dose reduction, the following was used: automated exposure control. COMPARISON: [facility], MR, MR LUMBAR SPINE WO CON, 10/01/2024, 16:56. [facility], CR, XR LUMBAR SPINE WITH FLEXION EXTENSION 5 VIEWS, 10/19/2024, 9:00. FINDINGS: Image quality: Excellent. Bones: No acute vertebral body compression fractures. No suspicious lytic or blastic bony lesions. Mild levoconvex scoliotic curvature is noted. There is mild retrolisthesis seen at the L2-L3 level. Mild grade 1 anterolisthesis is seen at L4-L5, without associated pars defects. T12-L1: The disc height is well preserved. Mild to moderate disc bulge is seen. No significant neural foraminal narrowing is seen. Mild central canal narrowing is seen. L1-L2: The disc height is well preserved. Mild to moderate disc bulge is seen. Mild bilateral neural foraminal narrowing is seen. Mild central canal narrowing is seen. L2-L3: Moderate to severe loss of disc height is seen. There is a degree of vertebral body bridging seen. Moderate generalized disc osteophyte complex is seen. There is a superimposed central disc osteophyte protrusion. Moderate facet joint hypertrophy is seen. There is at least moderate bilateral neural foraminal narrowing seen. At least moderate central canal narrowing is seen. L3-L4: Moderate loss of disc height is seen. Vacuum disc phenomenon is seen at this level. Moderate generalized disc bulge is seen. There is at least moderate facet hypertrophy seen. Moderate bilateral neural foraminal narrowing is seen. At least moderate central canal narrowing is seen. L4-L5: Moderate loss of disc height is seen. Vacuum disc phenomenon is seen at this level. Bridging endplate osteophytes are seen. At least moderate disc bulge is seen. Moderate to prominent facet hypertrophy can be seen. Moderate to severe bilateral neural foraminal narrowing can be seen. Moderate to severe central canal narrowing is seen. L5-S1: At least moderate loss of disc height is seen. Endplate irregularity and sclerosis can be seen. At least moderate disc bulge is seen. There is a superimposed central disc osteophyte protrusion. Moderate facet joint hypertrophy is seen. There is at least moderate bilateral neural foraminal narrowing present. Moderate central canal narrowing is seen. Soft tissues: No retroperitoneal masses or hematomas. Visualized aorta is normal in caliber. Atherosclerotic calcification is noted. Colonic diverticulosis is seen, without findings of active diverticulitis. IMPRESSION: Multiple levels of significant lumbar spine degenerative change can be seen. Dictated by: Erik Chavez M.D. on 11/28/2024 at 16:06 Approved by: Erik Chavez M.D. on 11/28/2024 at 16:11
== END ==
PROVIDERS: PCP Family Medicine; Referring Provider Orthopaedic Surgery Orthopaedic Surgery of the Spine; Visit Provider Orthopaedic Surgery Orthopaedic Surgery of the Spine
DX: M48.062 Spinal stenosis, lumbar region with neurogenic claudication (principal); M47.26 Other spondylosis with radiculopathy, lumbar region; M47.27 Other spondylosis with radiculopathy, lumbosacral region
CPT/HCPCS: 72131

== ENCOUNTER 2025-03-19 14:34 | Emergency (ER) | payer OTHER, SELFPAY ==
[2025-03-19 14:49] VITALS: BP 117/57; PULSE 83; RESP 20; TEMP 36.4; O2SAT 99; BMI 36.3
--- NOTE | 2025-03-19 14:54 | EKG_ITS ---
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
--- NOTE | 2025-03-19 14:54 | DI.RAD.S_ITS ---
PROCEDURE: XR CHEST 1V INDICATIONS: Shortness of breath TECHNIQUE: One view of the chest was acquired. COMPARISON: None. FINDINGS: Surgical changes and devices: None. Lungs and pleura: Lungs are clear. No pleural effusions or pneumothorax. Mediastinum: Mediastinal contours appear normal. Heart size is normal. Bones and chest wall: No suspicious bony lesions. Overlying soft tissues appear unremarkable. IMPRESSION: No acute cardiopulmonary abnormality is seen. Approved by: Stoney Linda M.D. on 03/19/2025 at 15:28
[2025-03-19 15:10] LABS: Add Manual Diff / Slide Review NO; Hematocrit 36.0 % (41-53); Hemoglobin 12.6 g/dL (13.5-17.5); Lymphocytes Absolute Auto 1400 /uL (1100-4500); Mean Corpuscular HGB Conc 35.1 % (30-36); Mean Corpuscular Hemoglobin 32.7 PG (26-34); Mean Corpuscular Volume 93.1 fL (80-100); Platelet Count 306 X10^3/uL (150-400)
[2025-03-19 15:16] LABS: INR 1.2 (0.9-1.3); Prothrombin Time 13.5 SECONDS (9.4-12.5)
[2025-03-19 15:21] LABS: Alanine Aminotransferase 20 IU/L (<50); Albumin 4.1 g/dL (3.5-5.0); Albumin Globulin Ratio 1.1 (1.0-2.8); Alkaline Phosphatase 63 U/L (38-126); Blood Urea Nitrogen 21 mg/dL (9-20); Calcium 9.3 mg/dL (8.4-10.2); Carbon Dioxide 19 mmol/L (22-32); Chloride 108 mmol/L (98-107); Estimated Glomerular Filt Rate 53 mL/min (>60); Globulin 3.7 g/dL (1.7-4.1); Glucose 116 mg/dL (70-99); HEMOLYSIS 29 (0-50); Potassium 4.3 mmol/L (3.4-5.1); Sodium 138 mmol/L (137-145); Total Protein 7.8 g/dL (6.3-8.2)
[2025-03-19 15:22] LABS: Lactate (Lactic Acid) 1.6 mmol/L (0.7-2.1)
[2025-03-19 15:32] LABS: NT-proBNP (BNP-Adult 18+) 702 pg/mL (<450); Troponin I < 0.012 ng/mL (0.01-0.034)
[2025-03-19 19:00] VITALS: BP 114/59; PULSE 70; O2SAT 99
[2025-03-19 19:30] VITALS: PULSE 67; O2SAT 99
[2025-03-19 19:31] VITALS: BP 147/65; PULSE 68; O2SAT 99
--- NOTE | 2025-03-19 19:40 | PC.NURSE ---
patient reports follow up with surgeon's office today to remove sutures from back, patient discussed having a feeling that is triggering a cough. center left upper chest. surgeons office recommended called pcp, when he did they sent him here.
--- NOTE | 2025-03-19 19:45 | ED.SOB ---
HPI - SOB/Dyspnea General Chief Complaint: Shortness of Breath/Dyspnea Stated Complaint: sob referred by dr hill op 2 wks Time Seen by Provider: 03/19/25 18:02 Source: patient Mode of arrival: Ambulatory History of Present Illness HPI Narrative: 84-year-old gentleman history of depression, obesity, hypertension, status post back surgery 2 weeks ago presents with nonproductive cough for 3 days along with sinus drainage feeling short of breath but no active chest pain, fever, chills, body aches, nausea, vomiting, diarrhea. He has not done anything for this and nothing makes it better or worse. He denies any leg pain or leg swelling or recent weight gain. Other than what is stated 14 point review of system is negative Related Data Home Medications ?Medication ?Instructions ?Recorded ?Confirmed atorvastatin 20 mg tablet 20 mg PO DAILY 01/03/23 10/24/24 lisinopril 5 mg tablet 5 mg PO DAILY 01/03/23 10/24/24 metoprolol succinate 50 mg 50 mg PO DAILY 01/03/23 10/24/24 tablet,extended release 24 hr fluoxetine 20 mg tablet 40 mg PO Q DAY 09/27/24 10/24/24 Previous Rx's ?Medication ?Instructions ?Recorded ibuprofen 600 mg tablet 600 mg PO TID PRN pain #90 tabs 01/11/25 amoxicillin 875 mg-potassium 1 tab PO Q12H #14 tabs 03/19/25 clavulanate 125 mg tablet azithromycin 250 mg tablet 250 mg PO DAILY 4 days #4 tabs 03/19/25 Allergies Allergy/AdvReac Type Severity Reaction Status Date / Time gabapentin AdvReac Severe Headache Verified 03/19/25 14:49 oxycodone (OXYCODONE) AdvReac Mild Headache Verified 03/19/25 14:49 Review of Systems Review of Systems ROS Unobtainable: All systems reviewed & are unremarkable except as noted in HPI and below Patient History Medical History (Updated 03/19/25 @ 20:00 by Omer Fernández DO) Depression Obesity Hypertension Surgical History (Updated 01/03/23 @ 13:28 by Yvrose Fernández MD) History of back surgery Smoking Status: Never smoker Exam Narrative Exam Narrative: GENERAL: [84] year old patient appears stated age. Well-developed patient, in mild distress. HEAD: Atraumatic. Normocephalic. EYES: Pupils equal round and reactive. Extraocular motions intact. No scleral icterus. No injection or drainage. ENT: Nose without bleeding, purulent drainage. Throat without erythema, tonsillar hypertrophy or exudate. Airway patent. NECK: Trachea midline. Non tender CARDIOVASCULAR: Regular rate and rhythm without murmurs, gallops, or rubs. RESPIRATORY: Bilateral faint crackles at the bases GASTROINTESTINAL: Abdomen soft, non-tender, nondistended. EXTREMITIES: No edema or joint tenderness. BACK: Nontender without deformity or crepitance. No flank tenderness. NEURO: AOx3. SKIN: No rash or erythema of visible areas Initial Vital Signs Initial Vital Signs: Vital Signs Temperature 97.5 F L 03/19/25 14:49 Pulse Rate 83 03/19/25 14:49 Respiratory Rate 20 03/19/25 14:49 Blood Pressure 117/57 L 03/19/25 14:49 Pulse Oximetry 99 03/19/25 14:49 Oxygen Delivery Method Room Air 03/19/25 14:49 Course Orders Ordered: ED Orders 03/19/25 14:54 XR chest 1V Stat EKG-12 Lead Stat Measure peak expiratory flow STAT RT Consult Eval and Treat STAT 03/19/25 15:00 Complete Blood Count AUTO DIFF Stat Comprehensive Metabolic Panel Stat Lactate (Lactic Acid) Stat NT-proBNP (BNP-Adult 18+) Stat Prothrombin Time INR Stat Troponin I Stat Vital Signs Vital signs: Vital Signs - 8 hr 03/19/25 14:49 Temperature 97.5 F L Pulse Rate 83 Respiratory Rate 20 Blood Pressure 117/57 L Pulse Oximetry 99 Oxygen Delivery Method Room Air MDM - SOB/Dyspnea Lab Data 03/19/25 15:00 03/19/25 15:00 Labs: Lab Results 03/19/25 Range/Units 15:00 WBC 8.8 (4.5-11.0) X10^3/uL RBC 3.87 L (4.5-5.9) X10^6/uL Hgb 12.6 L (13.5-17.5) g/dL Hct 36.0 L (41-53) % MCV 93.1 (80-100) fL MCH 32.7 (26-34) PG MCHC 35.1 (30-36) % RDW 13.8 (11.6-14.8) % Plt Count 306 (150-400) X10^3/uL Neut % (Auto) 72.5 (50-75) % Lymph % (Auto) 15.6 L (25-40) % [place] % (Auto) 9.6 (3-14) % Eos % (Auto) 1.4 L (2-4) % Baso % (Auto) 0.9 (0-2) % Neut # (Auto) 6400 (5750-8967) /uL Lymph # (Auto) 1400 (6283-6845) /uL [place] # (Auto) 800 (0-900) /uL Eos # (Auto) 100 (0-450) /uL Baso # (Auto) 100 (0-100) /uL PT 13.5 H (9.4-12.5) SECONDS INR 1.2 (0.9-1.3) Sodium 138 (137-145) mmol/L Potassium 4.3 (3.4-5.1) mmol/L Chloride 108 H (98-107) mmol/L Carbon Dioxide 19 L (22-32) mmol/L BUN 21 H (9-20) mg/dL Creatinine 1.31 H (0.66-1.25) mg/dL Estimated GFR 53 L (>60) mL/min BUN/Creatinine Ratio 16.0 (6-22) Glucose 116 H (70-99) mg/dL Lactate 1.6 (0.7-2.1) mmol/L Calcium 9.3 (8.4-10.2) mg/dL Total Bilirubin 0.6 (0.2-1.3) mg/dL AST 30 (17-59) IU/L ALT 20 (<50) IU/L Alkaline Phosphatase 63 (38-126) U/L Troponin I < 0.012 (0.01-0.034) ng/mL NT-Pro-B Natriuret Pep 702 H (<450) pg/mL Total Protein 7.8 (6.3-8.2) g/dL Albumin 4.1 (3.5-5.0) g/dL Globulin 3.7 (1.7-4.1) g/dL Albumin/Globulin Ratio 1.1 (1.0-2.8) Imaging Data Chest x-ray: Radiologist's Impression: [address] [address] XRay Report Signed Patient: Tor Rodriguez#: [id number] : 1940 Acct:[id number] Age/Sex: 84 / M Date of Service: 03/19/25 Loc: ED Accession Number: [id number] Procedure: XR chest 1V Ordering Provider: Curt Becker MD PROCEDURE: XR CHEST 1V INDICATIONS: Shortness of breath TECHNIQUE: One view of the chest was acquired. COMPARISON: None. FINDINGS: Surgical changes and devices: None. Lungs and pleura: Lungs are clear. No pleural effusions or pneumothorax. Mediastinum: Mediastinal contours appear normal. Heart size is normal. Bones and chest wall: No suspicious bony lesions. Overlying soft tissues appear unremarkable. IMPRESSION: No acute cardiopulmonary abnormality is seen. ECG Data Interpretation: NSR HR 78 NC 180 QRS [address]-t wave change Unchanged from 10/24/24 [facility] Narrative Medical decision making narrative: Vital signs, nurse triage note, medication list, previous ER visits, and all imaging studies reviewed. Chest x-ray showed no acute process. First set troponin normal. WBC is normal with no left shift BUN 21 creatinine 1.31 BNP 702. Differential diagnosis includes COVID flu pneumonia PE CHF. DC home on Augmentin and Zithromax given 1st dose here Discharge Plan Departure Patient Disposition: Home Clinical Impression: Pneumonia Qualifiers: Pneumonia type: due to Pneumococcus Laterality: bilateral Lung location: lower lobe of lung Qualified Code(s): J13 - Pneumonia due to Streptococcus pneumoniae Instructions: DI for Pneumonia -- Adult Activity Restrictions/Additional Instructions: Return with new or worsening symptoms. Take your medicines as directed. Follow up PCP 1-2 weeks if no improvement in symptoms Prescriptions: New amoxicillin-pot clavulanate 875-125 mg tablet 1 tab PO Q12H Qty: 14 0RF azithromycin 250 mg tablet 250 mg PO DAILY 4 Days Qty: 4 0RF Rx Instructions: start on day 2 of therapy No Action ibuprofen 600 mg tablet 600 mg PO TID PRN (Reason: pain) Qty: 90 0RF fluoxetine 20 mg tablet 40 mg PO Q DAY atorvastatin 20 mg Tablet 20 mg PO DAILY metoprolol succinate 50 mg Tablet Extended Release 24 Hr 50 mg PO DAILY lisinopril 5 mg Tablet 5 mg PO DAILY Referrals: Lavinia Conway DO [Primary Care Provider, Family Practice] Stand Alone Forms: Patient Portal/API
[2025-03-19 20:00] VITALS: BP 158/70; PULSE 68; O2SAT 98
[2025-03-19] MEDS: AMOXICILLIN/CLAV 875/125 MG 1 TAB PO (20:16)
[2025-03-19] MEDS: AZITHROMYCIN 250 MG TABLET 500 MG PO (20:16)
== END 2025-03-19 20:22 | disposition home or self-care (01) ==
PROVIDERS: Emergency Medicine; Emergency Provider Family Medicine; PCP Family Medicine
DX: J13 Pneumonia due to Streptococcus pneumoniae (principal)
CPT/HCPCS: 36415; 71045; 80053; 83605; 83880; 84484; 85025; 85610; 93005; 99283; 99284